=== PATIENT | female | born 1940 | race Caucasian/White ===

== ENCOUNTER 2017-10-31 17:57 | Inpatient (IN) | payer MEDICARE, BC ==
--- NOTE | 2017-10-31 18:49 | XR ---
EXAMINATION TYPE: XR chest 2V DATE OF EXAM: 10/31/2017 COMPARISON: NONE HISTORY: Near syncope TECHNIQUE: Frontal and lateral views of the chest are obtained. FINDINGS: Patient is post median sternotomy and rotated. Size may be accentuated by rotation. Inters titium appears increased. No evident pneumothorax or pleural effusion. Bandlike area of increased att enuation present at the left lung base. IMPRESSION: There may be a component of pulmonary venous hypertension and interstitial edema. Expira tory rotated exam. Basilar atelectasis or scar. Follow-up as indicated.
[2017-10-31] MEDS ORDERED: NOREPINEPHRIN 4 MG-0.9% NS PMX 4 MG/250 ML ML IV ONE (19:46)
[2017-10-31] MEDS ORDERED: SODIUM CHLORIDE 0.9% 1,000 ML IV ONE (19:53)
--- NOTE | 2017-10-31 20:07 | ED ---
General Adult HPI - General Chief complaint: Recheck/Abnormal Lab/Rx Stated complaint: low blood pressure Time Seen by Provider: 10/31/17 18:07 Source: patient, EMS Mode of arrival: EMS Limitations: no limitations - History of Present Illness Initial comments: 27 years old female with a history of chest pain shortness of breath abdominal pain with a history of coronary artery disease CABG, hyperlipidemia and diabetes hypertension as well as COPD she was recently admitted with a pneumonia , she passed out today she ended up in the [facility] where they noticed her blood pressure was 55/20 she was given fluids and antibiotics blood pressure Arrival to our place was 79/420 I repeated the chest x-ray showed mild congestive heart failure repeated the troponin this time reportedly troponin was elevated. System is unremarkable at this point - Related Data Home Medications Medication Instructions Recorded Confirmed Albuterol Inhaler [Ventolin Hfa 1 - 2 puff INHALATION RT-QID PRN 10/31/17 Inhaler] Aspirin EC [Ecotrin Low Dose] 81 mg PO DAILY 10/31/17 10/31/17 Atorvastatin Calcium [Lipitor] 20 mg PO HS 10/31/17 10/31/17 Cefuroxime Axetil [Ceftin] 500 mg PO BID 10/31/17 10/31/17 Cholecalciferol (Vitamin D3) 2,000 unit PO DAILY 10/31/17 10/31/17 [Vitamin D3] Escitalopram [Lexapro] 15 mg PO DAILY 10/31/17 10/31/17 Famotidine [Pepcid] 20 mg PO DAILY 10/31/17 10/31/17 Insulin Aspart [Novolog Flexpen] See Protocol SQ AC-BID 10/31/17 10/31/17 Insulin Glargine,Hum.rec.anlog 43 unit SQ HS 10/31/17 10/31/17 [Basaglar Kwikpen U-100] Lisinopril [Prinivil] 5 mg PO DAILY 10/31/17 10/31/17 Metoprolol Tartrate [Lopressor] 50 mg PO BID 10/31/17 10/31/17 Nitroglycerin Sl Tabs [Nitrostat] 0.4 mg SUBLINGUAL Q5M PRN 10/31/17 10/31/17 Pregabalin [Lyrica] 150 mg PO BID 10/31/17 10/31/17 Allergies Allergy/AdvReac Type Severity Reaction Status Date / Time codeine Allergy Unknown Verified 10/31/17 18:40 Iodinated Contrast- Oral and Allergy Rash/Hives Verified 10/31/17 18:40 IV Dye Review of Systems ROS Statement: Those systems with pertinent positive or pertinent negative responses have been documented in the HPI. ROS Other: All systems not noted in ROS Statement are negative. Past Medical History Past Medical History: Coronary Artery Disease (CAD), Deep Vein Thrombosis (DVT) History of Any Multi-Drug Resistant Organisms: None Reported Past Surgical History: Cholecystectomy, Heart Catheterization With Stent Additional Past Surgical History / Comment(s): open heart, B axillae lympnh node removal 70's Past Psychological History: Depression Smoking Status: Never smoker Past Alcohol Use History: None Reported Past Drug Use History: None Reported General Exam - General Exam Comments Initial Comments: General: The patient is awake and alert, in no obvious distress, she looks pale and tired but GCS is 15 she wants to eat something Skin: Skin is warm and dry and no rashes or lesions are noted. Eye: Pupils are equal, round and reactive to light, extra-ocular movements are intact; there is normal conjunctiva bilaterally. Ears, nose, mouth and throat: There are moist mucous membranes and no oral lesions. Neck: The neck is supple, there is no tenderness Cardiovascular: There is a regular rate and rhythm. No murmur, rub or gallop is appreciated. Respiratory: To auscultation bilateral, it is some crackles at the bases Gastrointestinal: Soft, non-distended, non-tender abdomen without masses or organomegaly noted. There is no rebound or guarding present. Bowel sounds are unremarkable. Back: There is no tenderness to palpation in the midline. There is no obvious deformity. Musculoskeletal: Normal ROM, no tenderness, There is no pedal edema. There is no calf tenderness or swelling. No cords were appreciated. Neurological: CN II-XII intact, Cranial nerves III through XII are intact. There are no obvious motor or sensory deficits. Coordination appears grossly intact. Speech is normal. Psychiatric: Cooperative, appropriate mood & affect, normal judgment. Limitations: no limitations Course Vital Signs 10/31/17 10/31/17 10/31/17 18:11 19:09 19:40 Temperature 97.9 F 97.3 F L Pulse Rate 73 95 Respiratory 16 16 Rate Blood Pressure 81/48 84/47 Blood Pressure 84/42 [Right Arm Supine] O2 Sat by Pulse 99 98 Oximetry Medical Decision Making - Lab Data Lab Results 10/31/17 Range/Units 18:25 Troponin I 0.149 H* (0.000-0.034) ng/mL Critical Care Time Total Critical Care Time: 49 Critical Care Time: Blood pressure is 79/40, she got about a liter of fluids chest x-ray showed mild congestion at that point we started on a nor appy, spoke with the Dr. Allison we'll give another liter of fluids and now she will go to the ICU on pressors. Troponin is elevated we'll go ahead and heparinize her, earlier at [facility] she had a CBC done hemoglobin is 9.2 PTT was 48 creatinine is 2.4 and lactate is 1.[address] to rule out any hemorrhage. I spoke with the Dr. Allison he is okay with the thao appendectomy and ICU admission patient be admitted under Dr. Leggett service and she'll be put on a Zosyn considering sepsis and recent admission for high for pneumonia Disposition Clinical Impression: Sepsis, Hypotension, Elevated troponin Disposition: ADMITTED IP TO THIS HOSP Condition: Good Referrals: Mehrdad Chery MD [Primary Care Provider] - 1-2 days
[2017-10-31] MEDS ORDERED: NALOXONE 0.4 MG/ML 1 ML VIAL IV PRN (20:08)
[2017-10-31] MEDS ORDERED: NITROGLYCERIN SL TABS 0.4 MG TAB SUBLINGUAL PRN (20:14)
[2017-10-31] MEDS ORDERED: NOREPINEPHRIN 4 MG-0.9% NS PMX 4 MG/250 ML ML IV SCH (20:15)
[2017-10-31 20:52] LABS: Glucose,Whole Blood 125 mg/dL (75-99)
[2017-10-31 21:10] LABS: Glucose,Whole Blood 138 mg/dL (75-99)
[2017-10-31] MEDS: ATORVASTATIN 20 MG TAB PO SCH (22:25)
[2017-10-31] MEDS: INSULIN DETEMIR 100 UNIT/ML 10 ML VIAL SQ SCH (22:25)
[2017-10-31] MEDS: PREGABALIN 75 MG CAP PO SCH (22:26)
[2017-10-31 22:52] VITALS: BMI 40.2
[2017-11-01] MEDS: PIPERACILLIN-TAZOBACTAM 3.375 GM in DEXTROSE/WATER 1 50ML.BAG IVPB SCH ×3 (01:01→20:47)
[2017-11-01] MEDS: SODIUM CHLORIDE 0.9% 1,000 ML IV SCH ×3 (01:02→20:53)
[2017-11-01 03:12] LABS: Hemoglobin A1C 7.3 % (4.0-6.0)
[2017-11-01 04:29] LABS: Anisocytosis Slight; Basophils % (A) 0 %; Eosinophils # (A) 0.1 k/uL (0-0.7); Eosinophils % (A) 1 %; HCT 32.5 % (34.0-46.0); HGB 9.7 gm/dL (11.4-16.0); Hypochromasia Marked; Lymphocytes # (A) 0.5 k/uL (1.0-4.8); Lymphocytes % (A) 12 %; MCH 26.5 pg (25.0-35.0); MCHC 29.8 g/dL (31.0-37.0); MCV 88.7 fL (80.0-100.0); Mean Platelet Volume 11.1; Monocytes # (A) 0.2 k/uL (0-1.0); Monocytes % (A) 5 %; Neutrophils # (A) 3.5 k/uL (1.3-7.7); Neutrophils % (A) 80 %; RBC 3.67 m/uL (3.80-5.40); RDW 16.8 % (11.5-15.5); WBC 4.4 k/uL (3.8-10.6)
[2017-11-01 04:59] LABS: Albumin 2.7 g/dL (3.5-5.0); Calcium 7.5 mg/dL (8.4-10.2); Magnesium 1.2 mg/dL (1.6-2.3); Phosphorus 4.3 mg/dL (2.5-4.5); Potassium 4.3 mmol/L (3.5-5.1); Total Bilirubin 0.7 mg/dL (0.2-1.3); Total Protein 5.6 g/dL (6.3-8.2)
[2017-11-01 05:39] LABS: Platelet Count 53 k/uL (150-450)
[2017-11-01] MEDS ORDERED: Magnesium Replacement Protocol 1 EACH MISC MISCELLANE PRN (06:18)
--- NOTE | 2017-11-01 07:09 | XR ---
EXAMINATION TYPE: XR chest 1V DATE OF EXAM: 11/01/2017 COMPARISON: 10/31/2017 HISTORY: Chest pain TECHNIQUE: Single frontal view of the chest is obtained. FINDINGS: There is no focal air space opacity, pleural effusion, or pneumothorax seen. Left hemithor ax volume loss with left basilar linear platelike subsegmental atelectasis and left hemidiaphragm unc hanged elevation is seen. The previously seen pulmonary vascular congestion has resolved in the inter im. Post CABG changes are seen of the chest with cardiac size upper limits of normal. Osseous structu res are intact. IMPRESSION: 1. Persistent left basilar subsegmental atelectasis with unchanged left hemidiaphragm elevation and l eft hemithorax volume loss. 2. Resolved pulmonary vascular congestion.
[2017-11-01] MEDS: ALBUTEROL NEBULIZED 2.5 MG/3 ML INHALATION PRN ×2 (07:44→11:33)
[2017-11-01] MEDS: MAGNESIUM SULFATE-D5W PMX 1 GM in DEXTROSE/WATER 1 100ML.BAG IVPB SCH ×3 (07:48→10:16)
[2017-11-01] MEDS: ASPIRIN 81 MG PO SCH (08:25)
[2017-11-01] MEDS: FAMOTIDINE 20 MG TAB PO SCH (08:25)
[2017-11-01] MEDS: ESCITALOPRAM 5 MG TAB PO SCH (08:25)
[2017-11-01] MEDS: CHOLECALCIFEROL 1,000 UNIT TAB PO SCH (08:25)
[2017-11-01] MEDS: ACETAMINOPHEN TAB 325 MG TAB PO PRN (08:30)
[2017-11-01] MEDS: INSULIN ASPART 100 UNIT/ML 1 ML 10 ML VIAL SQ SCH ×4 (09:37→21:50)
[2017-11-01] MEDS: PREGABALIN 75 MG CAP PO SCH ×2 (10:36→20:56)
--- NOTE | 2017-11-01 11:18 | P.CNPUL ---
History of Present Illness Consult date: 11/01/17 Chief complaint: Hypotension, syncope History of present illness: A pleasant 77-year-old female patient, presented to [facility] yesterday after she had a episodes of syncope. The patient felt weak and she briefly passed out. She was found to be hypotensive and her blood pressure was as low as 57 systolic. She was taken initially to [facility] and following that the patient got transferred to [facility] for further evaluation and treatment. The patient is known to have coronary artery disease and she has undergone previous bypass surgery. She is known to have obesity, insulin-dependent diabetes mellitus, hypertension, hyperlipidemia , diabetic peripheral neuropathy, hypothyroidism, chronic back pain, degenerative arthritis of the back and the knees, and previous history of T12- L1 compression deformity of the spine in addition to history of depression and irritable bowel syndrome. Approximately 3-4 weeks ago the patient was at [facility] treated for pneumonia. The patient had a preliminary workup at [facility]. The patient was found to have no significant leukocytosis. The white cell count was nonelevated. Her initial creatinine was at 2.4. Urinalysis has not been done. Chest x-ray showed some mild pulmonary vascular congestion. There was no evidence of any pneumonia. EKG showed a right bundle branch block pattern. The patient was given IV fluids and following that she got transferred to our hospital and overall she received a total of 5 L of IV fluids. She was briefly placed on pressors to maintain her blood pressure and currently she is off the pressors for the past 6 hours. Repeat creatinine is near is down to 2. She is producing urine output although the urine is somewhat cloudy. No chest pain. Limited congested cough without any significant sputum production. A repeat chest x-ray was done today and shows a left basilar atelectasis. CAT scan of the brain that was done at [facility] showed mild cerebral atrophy and a 1.8 cm calcified right cerebral hemisphere meningioma. No altered mentation. No seizure activity. No focal neurological deficit. No worsening in the chronic swelling of the lower extremities. No hypoglycemic events as reported in history. Review of Systems Constitutional: Reports fever, Reports weakness, Reports weight gain Eyes: bilateral blurred vision, denies bulging eye, denies decreased vision Ears: deny: decreased hearing, ear discharge, earache Ears, nose, mouth and throat: Denies headache, Denies sore throat Cardiovascular: Reports decreased exercise tolerance, Reports leg edema, Reports syncope Respiratory: Reports dyspnea Genitourinary: Denies dysuria, Denies hematuria Musculoskeletal: Reports low back pain, Reports muscle weakness Musculoskeletal: bilateral: ankle swelling, absent: ankle pain, ankle stiffness Integumentary: Denies pruritus, Denies rash Neurological: Reports syncope, Reports weakness Psychiatric: Denies anxiety, Denies depression Endocrine: Denies fatigue, Denies weight change Past Medical History Past Medical History: Asthma, Coronary Artery Disease (CAD), Diabetes Mellitus, Deep Vein Thrombosis (DVT), Hypertension Additional Past Medical History / Comment(s): Bronchial asthma mild intermittent in nature, coronary artery disease, spinal stenosis, diabetes mellitus, diabetic retinopathy, diabetic peripheral neuropathy, hyperlipidemia, obesity with a BMI of 40.6, history of iron deficiency anemia, hypothyroidism, chronic back pain, degenerative arthritis, osteoarthritis, [employer] lesion probably a meningioma that is calcified measuring 1.6 cm in size on the right, compression deformity of the T12-L1, depression, irritable bowel syndrome, remote history of DVT currently on no anticoagulants,Macular Degeneration History of Any Multi-Drug Resistant Organisms: None Reported Past Surgical History: Cholecystectomy, Heart Catheterization With Stent Additional Past Surgical History / Comment(s): Coronary artery bypass surgery, axillary lymph node removal/biopsy, previous cardiac catheterization, cholecystectomy Date of Last Stent Placement:: 1988 Past Psychological History: Depression Smoking Status: Never smoker Past Alcohol Use History: None Reported Past Drug Use History: None Reported - Past Family History Mother Family Medical History: Myocardial Infarction ([place]) Medications and Allergies Home Medications Medication Instructions Recorded Confirmed Type Albuterol Inhaler [Ventolin Hfa 1 - 2 puff INHALATION RT-Q4H PRN 10/31/17 History Inhaler] Aspirin EC [Ecotrin Low Dose] 81 mg PO DAILY 10/31/17 11/01/17 History Atorvastatin Calcium [Lipitor] 20 mg PO HS 10/31/17 11/01/17 History Cefuroxime Axetil [Ceftin] 500 mg PO BID 10/31/17 11/01/17 History Cholecalciferol (Vitamin D3) 2,000 unit PO DAILY 10/31/17 10/31/17 History [Vitamin D3] Escitalopram [Lexapro] 15 mg PO DAILY 10/31/17 11/01/17 History Famotidine [Pepcid] 20 mg PO DAILY 10/31/17 11/01/17 History Insulin Aspart [Novolog Flexpen] See Protocol SQ AC-TID 10/31/17 11/01/17 History Insulin Glargine,Hum.rec.anlog 43 unit SQ HS 10/31/17 11/01/17 History [Basaglar Kwikpen U-100] Lisinopril [Prinivil] 5 mg PO DAILY 10/31/17 11/01/17 History Nitroglycerin Sl Tabs [Nitrostat] 0.4 mg SUBLINGUAL Q5M PRN 10/31/17 11/01/17 History Pregabalin [Lyrica] 150 mg PO BID 10/31/17 11/01/17 History Albuterol Nebulized [Ventolin 2.5 mg INHALATION Q4H PRN 11/01/17 11/01/17 History Nebulized] Albuterol Nebulized [Ventolin 2.5 mg INHALATION RT-QID 11/01/17 11/01/17 History Nebulized] Cholestyramine/Aspartame 4 gm PO BID 11/01/17 11/01/17 History [Cholestyramine Light Powder] Ferrous Sulfate [Feosol] 325 mg PO DAILY 11/01/17 11/01/17 History Insulin Aspart [NovoLOG 8 unit SQ AC-TID 11/01/17 11/01/17 History (formulary)] Isosorbide Mononitrate ER [Imdur] 60 mg PO DAILY 11/01/17 11/01/17 History Metoprolol Tartrate [Lopressor] 25 mg PO BID 11/01/17 11/01/17 History Allergies Allergy/AdvReac Type Severity Reaction Status Date / Time codeine Allergy Unknown Verified 10/31/17 18:40 Iodinated Contrast- Oral and Allergy Rash/Hives Verified 10/31/17 18:40 IV Dye Physical Exam Vitals: Vital Signs Temp Pulse Resp BP BP Pulse Ox 11/01/17 10:00 98 20 109/51 98 11/01/17 09:00 97 22 118/50 98 11/01/17 08:02 91 11/01/17 08:00 101.0 F H 98 25 H 118/58 97 11/01/17 07:47 103 H 91 L 11/01/17 07:00 105 H 19 137/67 92 L 11/01/17 06:30 117 H 54 H 96 11/01/17 06:15 99 25 H 129/73 97 11/01/17 06:00 101 H 24 98 11/01/17 05:45 96 27 H 114/56 94 L 11/01/17 05:30 97 22 98 11/01/17 05:15 94 22 140/99 92 L 11/01/17 05:00 91 23 120/100 96 11/01/17 04:45 85 20 104/61 94 L 11/01/17 04:30 81 20 104/52 92 L 11/01/17 04:15 77 18 108/56 95 11/01/17 04:00 78 22 102/80 100 11/01/17 03:45 79 18 114/56 98 11/01/17 03:30 75 15 116/52 100 11/01/17 03:15 72 17 106/62 97 11/01/17 03:00 82 20 109/49 81 L 11/01/17 02:45 68 18 115/74 100 11/01/17 02:30 64 11 L 93/47 100 11/01/17 02:15 64 15 96/52 100 11/01/17 02:00 66 15 93/44 100 11/01/17 01:45 65 15 102/50 100 11/01/17 01:30 63 15 102/47 11/01/17 01:15 64 15 98/46 100 11/01/17 01:11 100 11/01/17 01:00 63 15 98/46 99 11/01/17 00:45 65 13 98/48 100 11/01/17 00:30 62 14 98/48 100 11/01/17 00:15 62 15 100/47 100 11/01/17 00:00 97.8 F 66 16 100/47 99 10/31/17 23:45 66 15 100/59 100 10/31/17 23:30 67 15 103/49 99 10/31/17 23:15 66 15 103/49 99 10/31/17 23:00 68 13 102/51 98 10/31/17 22:45 67 18 118/55 10/31/17 22:31 68 19 118/55 99 10/31/17 22:30 72 18 104/53 99 10/31/17 22:15 65 14 104/53 99 10/31/17 22:00 65 18 112/59 98 10/31/17 21:45 66 17 112/52 99 10/31/17 21:30 67 20 106/56 99 10/31/17 21:15 97.9 F 67 20 106/56 10/31/17 21:05 72 32 H 10/31/17 20:30 97.1 F L 69 20 111/53 99 10/31/17 20:08 78 18 97/51 100 10/31/17 19:40 84/42 10/31/17 19:09 97.3 F L 95 16 84/47 98 10/31/17 18:11 97.9 F 73 16 81/48 99 Intake and Output 10/31/17 11/01/17 11/01/17 22:59 06:59 14:59 Intake Total 800 600 Output Total 190 190 Balance 610 410 Intake: IV 800 600 Magnesium Sulfate-D5w Pmx 300 1 gm In Dextrose/Water 1 100ml.bag @ 100 mls/hr IVPB Q1H KARLA Rx#: [id number] Sodium Chloride 0.9% 1, 800 300 000 ml @ 100 mls/hr IV . Q10H KARLA Rx#:[id number] Output: Urine 190 190 Other: Voiding Method Indwelling Catheter Indwelling Catheter Indwelling Catheter Weight 103 kg 104 kg Obese, comfortable likely distress.Head exam was generally normal. There was no scleral icterus or corneal arcus. Mucous membranes were moist. Neck is short and supple and there is crowding of posterior pharyngeal a Mallampati class IV. Lung sounds are diminished bilaterally in addition some crackles in the lung bases.Cardiac exam revealed the PMI to be normally situated and sized. The rhythm was regular and no extrasystoles were noted during several minutes of auscultation. The first and second heart sounds were normal and physiologic splitting of the second heart sound was noted. There were no murmurs, rubs, clicks, or gallops.Abdominal exam revealed normal bowel sounds. The abdomen was soft, non-tender, and without masses, organomegaly, or appreciable enlargement of the abdominal aorta. Patient is obese and the organs cannot be accurately palpated. Extremities are showing +1 pitting edema distal cyanosis or clubbing. Neurologically, the patient is awake and alert and is no focal logical deficits that this point. Cranial nerves are intact.Examination of the skin revealed no evidence of significant rashes, suspicious appearing nevi or other concerning lesions. Results - Laboratory Findings CBC and BMP: 11/01/17 04:01 11/01/17 04:01 Abnormal lab findings: Abnormal Labs 10/31/17 10/31/17 10/31/17 18:25 18:27 20:50 RBC Hgb Hct MCHC RDW Plt Count Lymphocytes # BUN Creatinine POC Glucose (mg/dL) 125 H Hemoglobin A1c 7.3 H Calcium Magnesium AST ALT Alkaline Phosphatase Troponin I 0.149 H* Total Protein Albumin 10/31/17 11/01/17 11/01/17 21:07 04:01 04:01 RBC 3.67 L Hgb 9.7 L Hct 32.5 L MCHC 29.8 L RDW 16.8 H Plt Count 53 L Lymphocytes # 0.5 L BUN 38 H Creatinine 2.00 H POC Glucose (mg/dL) 138 H Hemoglobin A1c Calcium 7.5 L Magnesium 1.2 L AST 121 H ALT 69 H Alkaline Phosphatase 240 H Troponin I Total Protein 5.6 L Albumin 2.7 L - Diagnostic Findings Chest x-ray: image reviewed Assessment and Plan Plan: Assessment 1 syncope, likely secondary to hypotension. 2 acute hypotension, currently under investigation. The patient was volume responsive and the patient required pressors briefly. Rule out sepsis with secondary hypotension especially the patient had fever at a time of admission.. This may be hypovolemic/septic shock. Underlying cardiogenic shock is felt to be less likely 3 acute kidney injury, improving with fluid resuscitation 4 coronary artery disease with previous bypass surgery 5 right bundle branch block pattern on the EKG 6 insulin-dependent diabetes mellitus 7 diabetic peripheral neuropathy and retinopathy 8 obesity with a BMI of 40.6 9 hypothyroidism 10 hypertension 11 hyperlipidemia 12 recent hospitalization for pneumonia at [facility] 13 chronic back pain/degenerative arthritis/osteoarthritis/lumbosacral generative disc disease along with spinal stenosis/compression deformity of the left T12-L1 spine 14 irritable bowel syndrome 15 anemia 16 abnormal LFT 17 troponin leak 18 meningioma Plan Check urinalysis. Check urine culture. Check blood culture. IV Zosyn as empiric antibiotic coverage. Monitor fever pattern. Obtain US of the GB and kidney and the carotids. Monitor cardiac enzymes every 8 hours 2 more samples. Monitor the blood pressure and use pressors if needed. Currently she is on 80 mL an hour of normal saline. Obtain records from records from [facility] , we'll continue to follow
[2017-11-01 12:10] LABS: Glucose,Whole Blood 67 mg/dL (75-99)
--- NOTE | 2017-11-01 12:15 | CONS ---
CONSULTATION This is a 77-year-old female who presented to the [facility] with an episode of syncope. She was hypertensive and persistently so in the 70s. Cardiology was consulted on account of an abnormal troponin of 0.1. When I examined her, she was not complaining of any chest discomfort. No dizziness, lightheadedness, palpitations, or shortness of breath. She looked very comfortable and her blood pressure is in the normal range. Past medical history of obesity, insulin dependant diabetes, hypertension, dyslipidemia, diabetic neuropathy and recently treated at [facility] for pneumonitis. She was treated with IV fluids and pressors and was transferred to the hospital. She received about 5 L of fluids. REVIEW OF SYSTEMS: She does report fever, weakness and weight gain and blurring of vision. No hematuria, dysuria. No strokes or seizures. No nausea, vomiting, diarrhea, hematuria, dysuria. PAST HISTORY: Of asthma, coronary artery disease, insulin-dependent diabetes, DVT, hypertension. PAST SURGICAL HISTORY: Cholecystectomy, cardiac catheterization with stenting and coronary artery bypass grafting, cholecystectomy. SOCIAL HISTORY: She is a nonsmoker. MEDICATION LIST: Was reviewed and is documented in the chart. She is on aspirin, atorvastatin, insulin, lisinopril, Imdur, metoprolol. ALLERGIES: IODINE. PHYSICAL EXAMINATION: At this time, vitals are stable. Blood pressure is 118/50 mmHg, respirations are normal. Pulse rate is in the 80s and 90s. Head and neck examination normal. Heart sounds are normal. Lungs are clear to auscultation. Extremities are warm, no edema. Abdomen is soft, nontender. IMPRESSION: Patient presented with persistent hypotension, mildly abnormal troponins without any chest discomfort or angina-like symptoms. Her 12-lead ECG shows right bundle branch block pattern. Suggest from a cardiac standpoint, should continue cardiac medications and workup for the cause of hypotension and a 2D echo and Doppler study. MMODL / IJN: [id number] /
--- NOTE | 2017-11-01 13:51 | US ---
EXAMINATION TYPE: US carotid duplex BILAT DATE OF EXAM: 11/01/2017 COMPARISON: NONE CLINICAL HISTORY: Syncope. EXAM MEASUREMENTS: RIGHT: Peak Systolic Velocity (PSV) cm/sec ----- Right CCA: 71.6 ----- Right ICA: 96.1 ----- Right ECA: 97.4 ICA/CCA ratio: 1.3 RIGHT: End Diastole cm/sec ----- Right CCA: 11.6 ----- Right ICA: 14.1 ----- Right ECA: 0.0 LEFT: Peak Systolic Velocity (PSV) cm/sec ----- Left CCA: 52.4 ----- Left ICA: 88.2 ----- Left ECA: 82.4 ICA/CCA ratio: 1.7 LEFT: End Diastole cm/sec ----- Left CCA: 12.5 ----- Left ICA: 23.8 ----- Left ECA: 0.0 VERTEBRALS (direction of flow): Right Vertebral: Antegrade Left Vertebral: Antegrade Rhythm: Arrhythmia Technically difficult study, ICU patient unable to cooperate and snoring heavily throughout test. No significant velocity elevations. Minimal amount of grayscale plaquing within the right carotid bulb. IMPRESSION: 1. Minimal grayscale atheromatous plaquing within the right carotid bulb with no hemodynamically sign ificant stenosis within either carotid arterial system as visualized. 2. Incidental note of a cardiac arrhythmia. Correlate with EKG.
[2017-11-01 14:06] LABS: Glucose,Whole Blood 86 mg/dL (75-99)
--- NOTE | 2017-11-01 15:02 | US ---
EXAMINATION TYPE: US abd limited kidneys/bladder DATE OF EXAM: 11/01/2017 COMPARISON: NONE CLINICAL HISTORY: Elevated LFTs. EXAM MEASUREMENTS: Liver Length: 17.7 cm Gallbladder Wall: Surgically absent CBD: 0.4 cm Right Kidney: 13.3 x 5.6 x 4.6 cm Left Kidney: unable to obtain measurement Morbidly obese ICU patient unable to hold her breath or move in any way to assist examiner. Technical ly difficult and limited study Pancreas: appears prominent, partially obscured by bowel gas Liver: limited visualization, increased attenuation most commonly associated with hepatic steatosis a finding limits evaluation for underlying masses, upper limits of normal in size Gallbladder: Surgically absent CBD: wnl Right Kidney: portion of superior kidney obscured by overlying bowel gas, measures large Left Kidney: upper and mid pole obscured by bowel gas, unable to view well due to above limitations Bladder: not seen, [place] IMPRESSION: 1. Exam is limited by overlying bowel gas with obscuration of portions of the left kidney, right kidn ey, pancreas, and liver. 2. Findings most compatible with hepatic steatosis. 3. Surgical absence of the gallbladder with no dilatation of the common bile duct.
--- NOTE | 2017-11-01 15:45 | CONS ---
CONSULTATION REASON FOR CONSULT: Renal failure. HISTORY OF PRESENT ILLNESS: The patient is a 77-year-old female who was transferred from [facility]. Patient states she was at home and she apparently passed out. Her family called EMS. She was hypotensive and was on Levophed and transferred from [facility] to [facility]. Patient has received 3 L of IV fluids since admission. She was on Levophed, which is now discontinued. Serum creatinine was about 2.5 mg/dL, currently down to 2.0. Patient has had good urine output. She denies use of any nonsteroidal anti- inflammatory agents. She was at [facility] on 10/15/2017. At that time, she had influenza and received a course of Tamiflu. We had seen her in August at [facility] for acute kidney injury, at which time serum creatinine was as high as 2.0 mg/dL. Patient has not received any IV contrast. Her UA is suggestive of possible underlying UTI. PAST MEDICAL HISTORY: Asthma, coronary artery disease, type 2 diabetes, history of DVT, hypertension, recent admission for influenza about 2 weeks ago, a ROOM SERVICE WAITER lesion, possibly meningioma, history of macular degeneration, irritable bowel syndrome, osteoarthritis, hypothyroidism, iron deficiency anemia, hyperlipidemia, peripheral neuropathy, spinal stenosis. PAST SURGICAL HISTORY: Cholecystectomy, cardiac catheterization, coronary artery bypass surgery. Axillary lymph node biopsy. SOCIAL HISTORY: Negative for smoking, drug abuse or alcohol abuse. MEDICATIONS: At home included aspirin, Lipitor, Ventolin, Ceftin, vitamin D, Lexapro, Pepcid, insulin, Prinivil, Nitrostat, Lyrica, iron, Imdur, Lopressor. ALLERGIES: IV DYE. PHYSICAL EXAMINATION: Patient is currently comfortable, awake. She is not in any acute distress. Blood pressure is 99/52, heart rate 84 per minute. She is afebrile. Examination of the heart, S1, S2. Examination of the lungs,. decreased breath sounds at the bases. Bilateral basal crackles are heard. Abdomen is soft, nontender. Examination of the lower extremities shows no significant edema. ROOM SERVICE WAITER exam is grossly intact. Patient is moving all 4 extremities. LABS: Revealed sodium 139, potassium 4.3, chloride 102, BUN 38, serum creatinine 2.0, hemoglobin 9.7 g/dL, phosphorus 4.3, magnesium 1.2. ASSESSMENT: 1. Acute kidney injury secondary to hypotension, hypoperfusion and most likely sepsis as well. Currently improving. Continue with IV fluids. Monitor closely for volume overload. 2. Hypotension, most likely from underlying sepsis. Follow up on all the cultures. Patient is maintained on empiric antibiotics. 3. Recent history of influenza, status post Tamiflu. 4. Chronic kidney disease. Previous creatinine 1.2 in earlier part of September of 2017. 5. Hypomagnesemia, currently being replaced. PLAN: Follow up on cultures. Continue fluids at the current rate and closely monitor for fluid overload. Repeat labs in a.m. Thank you for this consultation. Will continue to follow the patient with you during her hospitalization. MMODL / IJN: [id number] /
[2017-11-01 16:48] LABS: Glucose,Whole Blood 102 mg/dL (75-99)
--- NOTE | 2017-11-01 17:00 | CONS ---
CONSULTATION DATE OF SERVICE: 11/01/2017. REASON FOR CONSULTATION: Fever/sepsis. HISTORY OF PRESENT ILLNESS: The patient is a 77-year-old female, who was initially taken to the [facility] after apparently the patient did have a syncopal episode. The patient said she felt weak and briefly passed out. At the [facility] ER the patient noticed to be hypotensive with systolic down to 57 with no ICU bed available at that facility. The patient has been transferred to the [facility] ER for further evaluation of the same. On arrival to the ER at this facility the patient has been 98 systolic. She was slightly tachycardic 121 to 117. She did have a fever of 101 degrees Fahrenheit this morning. The patient did have a white count normal at 4.4. Her liver enzymes slightly elevated with AST of 0.7, ALT of 121. The patient did not have any UA or culture. She did have a chest x-ray which shows a component of pulmonary venous hypertension, interstitial edema. Repeat x-rays did show persistent left basilar subsegmental atelectasis with no pulmonary vascular congestion. When asked specifically the patient did have some congested cough for the last few days. However, the patient bring up any sputum. The patient denies any chest pain. Denies any significant URI symptoms. The patient denies any abdominal pain. No nausea, vomiting. No diarrhea. No significant urinary symptoms. She has been started on Zosyn and an infectious disease was consulted for further recommendation regarding antibiotic therapy. REVIEW OF SYSTEMS: CONSTITUTIONAL: Positive for weakness along with the fever on admission. EYES: No complaint. ENT: No complaint. RESPIRATORY: As per HPI. CARDIOVASCULAR: No complaint. GENITOURINARY: No complaint. GASTROINTESTINAL: No complaint. MUSCULOSKELETAL: No complaint. INTEGUMENTARY: No complaint. PSYCHOLOGIC: No complaint. ENDOCRINE: No complaint. NEUROLOGIC: No complaint. PAST MEDICAL HISTORY: Diabetes mellitus, coronary artery disease, asthma, DVT, hypertension, macular degeneration. PAST SURGICAL HISTORY: Cholecystectomy, heart catheterization with stent, coronary artery bypass grafting, lymph node removal, cholecystectomy. SOCIAL HISTORY: No history of smoking, drinking or drug use. FAMILY HISTORY: Mother with history of [place]. ALLERGIES: To CODEINE AND IODINATED CONTRAST DYE. MEDICATION: Medications include the patient currently on Tylenol, Ventolin, aspirin, Lipitor, vitamin D3, Lovenox, Lexapro, Pepcid, NovoLog, Levemir, Narcan, Nitrostat, Pip- tazobactam, Lyrica and IV fluid. EXAMINATION: Her blood pressure is 102/47 with a pulse of 83, temperature of 98.8, T-max is 101 degrees Fahrenheit. She is 97% on 2 L nasal cannula. General description is an elderly female lying in bed in no distress. No tachypnea or accessory muscle of respiration use. HEENT: Shows pallor. No scleral icterus. Oral mucosa membranes dry. No erythema or thrush. NECK: Trachea central. No thyromegaly. LUNGS: Unlabored breathing, decreased breath sounds at the bases. No wheeze or crackle. HEART: S1, S2. Regular rate and rhythm. ABDOMEN: Soft, no tenderness. No organomegaly. No guarding or rigidity. EXTREMITIES: No edema of the feet. SKIN: No rash or mass palpable. NEUROLOGICAL: Patient is awake, alert, oriented x3. No signs of meningeal irritation. LABS: Hemoglobin 9.7, white count 4.4, BUN of 30, creatinine 2.0. Electrolytes have been normal. AST was 121, ALT 69. No UA has been done. Chest x-ray report as mentioned above. Blood culture obtained currently pending. DIAGNOSTIC IMPRESSION AND PLAN: Patient with sepsis in a patient who did have a fever of 101 degrees Fahrenheit. She was significantly hypertensive regarding multiple fluid boluses with tachycardia meeting criteria for SIRS/sepsis in a patient who did have a slightly elevated liver enzymes. Also have mildly congested cough with a source questionable abdominal or pneumonia not entirely excluded. The patient with no evidence of any cellulitis, though denies having significant urinary symptoms. UA has not been checked to make sure that is not the source of infection. PLAN: 1. We will check a UA and culture. 2. Check a influenza PCR. 3. Await the ultrasound abdomen is to be completed. 4. Zosyn 3.375 mg q.8h to provide adequate coverage for both pneumonia as well as abdomen source. 5. We will follow up on the clinical condition and culture to further adjust medication if needed. Thank you for this consultation. Will follow this patient along with you. MMODL / IJN: [id number] /
[2017-11-01 18:36] LABS: Amorphous Sediment,Urine Rare /hpf; Appearance,Urine Turbid (Clear); Bilirubin,Urine Negative (Negative); Blood,Urine Moderate (Negative); Color,Urine Yellow; Glucose,Urine (UA) Negative (Negative); Ketones,Urine Negative (Negative); Leukocyte Esterase,Urine Large (Negative); Mucus,Urine Rare /hpf; Nitrite,Urine Negative (Negative); PH, Urine 5.5 (5.0-8.0); Protein,Urine 1+ (Negative); RBC,Urine 14 /hpf (0-5); Specific Gravity,Urine 1.013 (1.001-1.035); Squamous Epithelial Cell,Urine 1 /hpf (0-4); Urobilinogen,Urine <2.0 mg/dL (<2.0); WBC,Urine 98 /hpf (0-5)
[2017-11-01] MEDS: ATORVASTATIN 20 MG TAB PO SCH (20:48)
[2017-11-01 21:44] LABS: Glucose,Whole Blood 124 mg/dL (75-99)
[2017-11-01] MEDS: INSULIN DETEMIR 100 UNIT/ML 10 ML VIAL SQ SCH (21:52)
--- NOTE | 2017-11-01 22:21 | P.HPIM ---
History of Present Illness H&P Date: 11/01/17 Chief Complaint: Syncope Patient is a 77-year-old female with a known history of coronary artery disease and coronary artery bypass graft, diabetes2 and diabetic retinopathy and peripheral neuropathy, hyperlipidemia and obesity and multiple other medical problems was initially presented to [facility] status post syncopal episode. Patient was apparently at physician's office and was waiting for her ride and suddenly she had a syncopal episode. Last about 20 seconds. Patient landed on the ground and EMS was called and patient was initially taken to [facility]. Patient was found have hypotensive with SBP 57 and was patient immediately transferred to [facility]. Approximately 3-4 weeks ago the patient was at [facility] treated for pneumonia. Chest x-ray showed mild pulmonary vascular condition. Creatinine 2.4 initially EKG right bundle branch block pattern Patient was started on pressor support.. CT head showed mild cerebral atrophy and a 1.8 cm calcified right cerebral hemisphere meningioma. Currently patient is communicating well. No denied any chest pain or shortness of breath. No seizure activity was noted. No altered mentation. No fever no chills. No nausea vomiting or diarrhea. No hyperglycemia. Review of Systems Constitutional: Patient denies any fever or chills . No generalized weakness or weight loss. Abdomen: Patient denied nausea vomiting and diarrhea and abdominal pain. Cardiovascular: Patient denies any chest pain or short of breath no palpitations. Respiratory: patient denied any cough is from production. No shortness of breath Neurologic: Patient denied any numbness or tingling headache. Musculoskeletal: Patient denies any complaints of joint swelling or deformity. Skin: Negative Psychiatric: Negative Endocrine: No heat or cold intolerance. No recent weight gain. Genitourinary: No dysuria or hematuria. 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 that is calcified measuring 1.6 cm in size on the right, compression deformity of the T12-L1, depression, irritable bowel syndrome, remote history of DVT currently on no anticoagulants,Macular Degeneration History of Any Multi-Drug Resistant Organisms: None Reported Past Surgical History: Cholecystectomy, Heart Catheterization With Stent Additional Past Surgical History / Comment(s): Coronary artery bypass surgery, axillary lymph node removal/biopsy, previous cardiac catheterization, cholecystectomy Date of Last Stent Placement:: 1988 Past Psychological History: Depression Smoking Status: Never smoker Past Alcohol Use History: None Reported Past Drug Use History: None Reported - Past Family History Mother Family Medical History: Myocardial Infarction ([place]) Medications and Allergies Home Medications Medication Instructions Recorded Confirmed Type Albuterol Inhaler [Ventolin Hfa 1 - 2 puff INHALATION RT-Q4H PRN 10/31/17 History Inhaler] Aspirin EC [Ecotrin Low Dose] 81 mg PO DAILY 10/31/17 11/01/17 History Atorvastatin Calcium [Lipitor] 20 mg PO HS 10/31/17 11/01/17 History Cefuroxime Axetil [Ceftin] 500 mg PO BID 10/31/17 11/01/17 History Cholecalciferol (Vitamin D3) 2,000 unit PO DAILY 10/31/17 10/31/17 History [Vitamin D3] Escitalopram [Lexapro] 15 mg PO DAILY 10/31/17 11/01/17 History Famotidine [Pepcid] 20 mg PO DAILY 10/31/17 11/01/17 History Insulin Aspart [Novolog Flexpen] See Protocol SQ AC-TID 10/31/17 11/01/17 History Insulin Glargine,Hum.rec.anlog 43 unit SQ HS 10/31/17 11/01/17 History [Basaglar Kwikpen U-100] Lisinopril [Prinivil] 5 mg PO DAILY 10/31/17 11/01/17 History Nitroglycerin Sl Tabs [Nitrostat] 0.4 mg SUBLINGUAL Q5M PRN 10/31/17 11/01/17 History Pregabalin [Lyrica] 150 mg PO BID 10/31/17 11/01/17 History Albuterol Nebulized [Ventolin 2.5 mg INHALATION Q4H PRN 11/01/17 11/01/17 History Nebulized] Albuterol Nebulized [Ventolin 2.5 mg INHALATION RT-QID 11/01/17 11/01/17 History Nebulized] Cholestyramine/Aspartame 4 gm PO BID 11/01/17 11/01/17 History [Cholestyramine Light Powder] Ferrous Sulfate [Feosol] 325 mg PO DAILY 11/01/17 11/01/17 History Insulin Aspart [NovoLOG 8 unit SQ AC-TID 11/01/17 11/01/17 History (formulary)] Isosorbide Mononitrate ER [Imdur] 60 mg PO DAILY 11/01/17 11/01/17 History Metoprolol Tartrate [Lopressor] 25 mg PO BID 11/01/17 11/01/17 History Allergies Allergy/AdvReac Type Severity Reaction Status Date / Time codeine Allergy Unknown Verified 10/31/17 18:40 Iodinated Contrast- Oral and Allergy Rash/Hives Verified 10/31/17 18:40 IV Dye Physical Exam Vitals: Vital Signs Temp Pulse Pulse Resp BP BP Pulse Ox 11/01/17 16:00 98.4 F 80 18 119/54 98 11/01/17 14:00 83 18 102/47 97 11/01/17 13:00 93 20 100/48 98 11/01/17 12:00 98.8 F 82 17 92/44 97 11/01/17 11:44 99 11/01/17 11:35 97 11/01/17 11:00 84 18 99/52 96 11/01/17 10:00 98 20 109/51 98 11/01/17 09:00 97 22 118/50 98 11/01/17 08:02 91 11/01/17 08:00 101.0 F H 98 25 H 118/58 97 11/01/17 07:47 103 H 91 L 11/01/17 07:00 105 H 19 137/67 92 L 11/01/17 06:30 117 H 54 H 96 11/01/17 06:15 99 25 H 129/73 97 11/01/17 06:00 101 H 24 98 11/01/17 05:45 96 27 H 114/56 94 L 11/01/17 05:30 97 22 98 11/01/17 05:15 94 22 140/99 92 L 11/01/17 05:00 91 23 120/100 96 11/01/17 04:45 85 20 104/61 94 L 11/01/17 04:30 81 20 104/52 92 L 11/01/17 04:15 77 18 108/56 95 11/01/17 04:00 78 22 102/80 100 11/01/17 03:45 79 18 114/56 98 11/01/17 03:30 75 15 116/52 100 11/01/17 03:15 72 17 106/62 97 11/01/17 03:00 82 20 109/49 81 L 11/01/17 02:45 68 18 115/74 100 11/01/17 02:30 64 11 L 93/47 100 11/01/17 02:15 64 15 96/52 100 11/01/17 02:00 66 15 93/44 100 11/01/17 01:45 65 15 102/50 100 11/01/17 01:30 63 15 102/47 11/01/17 01:15 64 15 98/46 100 11/01/17 01:11 100 11/01/17 01:00 63 15 98/46 99 11/01/17 00:45 65 13 98/48 100 11/01/17 00:30 62 14 98/48 100 11/01/17 00:15 62 15 100/47 100 11/01/17 00:00 97.8 F 66 16 100/47 99 10/31/17 23:45 66 15 100/59 100 10/31/17 23:30 67 15 103/49 99 10/31/17 23:15 66 15 103/49 99 10/31/17 23:00 68 13 102/51 98 10/31/17 22:45 67 18 118/55 10/31/17 22:31 68 19 118/55 99 10/31/17 22:30 72 18 104/53 99 10/31/17 22:15 65 14 104/53 99 10/31/17 22:00 65 18 112/59 98 Intake and Output 11/01/17 11/01/17 11/01/17 06:59 14:59 22:59 Intake Total 800 1940 540 Output Total 190 380 Balance 610 1560 540 Intake: IV 800 900 300 Magnesium Sulfate-D5w Pmx 300 1 gm In Dextrose/Water 1 100ml.bag @ 100 mls/hr IVPB Q1H [facility] Rx#: [id number] Sodium Chloride 0.9% 1, 800 600 300 000 ml @ 100 mls/hr IV . Q10H [facility] Rx#:[id number] Oral 1040 240 Output: Urine 190 380 Other: Voiding Method Indwelling Catheter Indwelling Catheter Indwelling Catheter Weight 104 kg PHYSICAL EXAMINATION: Patient is lying in the bed comfortably, no acute distress, awake alert and oriented.. HEENT: Normocephalic. Neck is supple. Pupils reactive. Nostrils clear. Oral cavity is moist. Ears reveal no drainage. Neck reveals no JVD, carotid bruits, or thyromegaly. CHEST EXAMINATION: Trachea is central. Symmetrical expansion. Lung martinez clear to auscultation and percussion. CARDIAC: Normal S1, S2 with no gallops. No murmurs ABDOMEN: Soft. Bowel sounds normal. No organomegaly. No abdominal bruits. Extremities: reveal no edema. No clubbing or cyanosis Neurologically awake, alert, oriented x3 with well-coordinated movements. No focal deficits noted Skin: No rash or skin lesions. Psychiatric: Cooperative. Nonsuicidal Musculoskeletal: No joint swelling or deformity. Normal range of motion. Results CBC & Chem 7: 11/01/17 04:01 11/01/17 04:01 Labs: Abnormal Lab Results - Last 24 Hours (Table) 10/31/17 11/01/17 11/01/17 Range/Units 18:27 04:01 04:01 RBC 3.67 L (3.80-5.40) m/uL Hgb 9.7 L (11.4-16.0) gm/dL Hct 32.5 L (34.0-46.0) % MCHC 29.8 L (31.0-37.0) g/dL RDW 16.8 H (11.5-15.5) % Plt Count 53 L (150-450) k/uL Lymphocytes # 0.5 L (1.0-4.8) k/uL BUN 38 H (7-17) mg/dL Creatinine 2.00 H (0.52-1.04) mg/dL POC Glucose (mg/dL) (75-99) mg/dL Hemoglobin A1c 7.3 H (4.0-6.0) % Calcium 7.5 L (8.4-10.2) mg/dL Magnesium 1.2 L (1.6-2.3) mg/dL AST 121 H (14-36) U/L ALT 69 H (9-52) U/L Alkaline Phosphatase 240 H (38-126) U/L Total Protein 5.6 L (6.3-8.2) g/dL Albumin 2.7 L (3.5-5.0) g/dL Urine Appearance (Clear) Urine Protein (Negative) Urine Blood (Negative) Ur Leukocyte Esterase (Negative) Urine RBC (0-5) /hpf Urine WBC (0-5) /hpf Amorphous Sediment (None) /hpf Urine Mucus (None) /hpf 11/01/17 11/01/17 11/01/17 Range/Units 12:09 16:36 18:01 RBC (3.80-5.40) m/uL Hgb (11.4-16.0) gm/dL Hct (34.0-46.0) % MCHC (31.0-37.0) g/dL RDW (11.5-15.5) % Plt Count (150-450) k/uL Lymphocytes # (1.0-4.8) k/uL BUN (7-17) mg/dL Creatinine (0.52-1.04) mg/dL POC Glucose (mg/dL) 67 L 102 H (75-99) mg/dL Hemoglobin A1c (4.0-6.0) % Calcium (8.4-10.2) mg/dL Magnesium (1.6-2.3) mg/dL AST (14-36) U/L ALT (9-52) U/L Alkaline Phosphatase (38-126) U/L Total Protein (6.3-8.2) g/dL Albumin (3.5-5.0) g/dL Urine Appearance Turbid H (Clear) Urine Protein 1+ H (Negative) Urine Blood Moderate H (Negative) Ur Leukocyte Esterase Large H (Negative) Urine RBC 14 H (0-5) /hpf Urine WBC 98 H (0-5) /hpf Amorphous Sediment Rare H (None) /hpf Urine Mucus Rare H (None) /hpf 11/01/17 Range/Units 21:32 RBC (3.80-5.40) m/uL Hgb (11.4-16.0) gm/dL Hct (34.0-46.0) % MCHC (31.0-37.0) g/dL RDW (11.5-15.5) % Plt Count (150-450) k/uL Lymphocytes # (1.0-4.8) k/uL BUN (7-17) mg/dL Creatinine (0.52-1.04) mg/dL POC Glucose (mg/dL) 124 H (75-99) mg/dL Hemoglobin A1c (4.0-6.0) % Calcium (8.4-10.2) mg/dL Magnesium (1.6-2.3) mg/dL AST (14-36) U/L ALT (9-52) U/L Alkaline Phosphatase (38-126) U/L Total Protein (6.3-8.2) g/dL Albumin (3.5-5.0) g/dL Urine Appearance (Clear) Urine Protein (Negative) Urine Blood (Negative) Ur Leukocyte Esterase (Negative) Urine RBC (0-5) /hpf Urine WBC (0-5) /hpf Amorphous Sediment (None) /hpf Urine Mucus (None) /hpf Microbiology - Last 24 Hours (Table) 11/01/17 08:30 Urine Culture - Preliminary Urine,Catheterized Thrombosis Risk Factor Assmnt - DVT/VTE Prophylaxis DVT/VTE Prophylaxis: Pharmacologic Prophylaxis ordered - Choose All That Apply Any of the Below Risk Factors Present?: Yes Each Factor Represents 1 point: Medical pt on bed rest, Obesity (BMI >25), Sepsis (< 1month) Each Risk Factor Represents 3 Points: Age 75 years or older Thrombosis Risk Factor Assessment Total Risk Factor Score: 6 Thrombosis Risk Factor Assessment Level: High Risk Assessment and Plan Assessment: Syncope likely due to hypertension Hypovolemic/septic shock. requiring pressor support and fluid boluses. Source of infection is not clear at this time. 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 Coronary artery bypass surgery Last Stent Placement:: 1988 hx of Depression Thrombocytopenia DVT prophylaxis with SCDs Plan: Patient will be continued on IV fluids and gradually taper down pressor support. Patient be continued on antibiotics in the form of Zosyn and follow- up culture reports. Current with home medications and hold blood pressure medications. Insulin dosing. Follow up closely. Further recommendations based on the clinical course. Prognosis guarded. Time with Patient: Greater than 30
[2017-11-02] MEDS: ACETAMINOPHEN TAB 325 MG TAB PO PRN ×2 (03:44→20:15)
[2017-11-02] MEDS: SODIUM CHLORIDE 0.9% 1,000 ML IV SCH ×2 (05:21→16:41)
[2017-11-02 06:08] LABS: Glucose,Whole Blood 37 mg/dL (75-99)
[2017-11-02 06:08] LABS: Glucose,Whole Blood 39 mg/dL (75-99)
[2017-11-02 06:21] LABS: Glucose,Whole Blood 48 mg/dL (75-99)
[2017-11-02] MEDS: INSULIN ASPART 100 UNIT/ML 1 ML 10 ML VIAL SQ SCH ×4 (06:25→21:35)
[2017-11-02 06:44] LABS: Glucose,Whole Blood 57 mg/dL (75-99)
[2017-11-02 07:03] LABS: Anisocytosis Slight; Basophils % (A) 0 %; Eosinophils % (A) 1 %; HCT 30.5 % (34.0-46.0); HGB 9.3 gm/dL (11.4-16.0); Hypochromasia Moderate; Lymphocytes # (A) 0.6 k/uL (1.0-4.8); Lymphocytes % (A) 19 %; MCH 26.6 pg (25.0-35.0); MCHC 30.5 g/dL (31.0-37.0); MCV 87.3 fL (80.0-100.0); Monocytes # (A) 0.2 k/uL (0-1.0); Monocytes % (A) 6 %; Neutrophils # (A) 2.1 k/uL (1.3-7.7); Neutrophils % (A) 68 %; RDW 16.5 % (11.5-15.5); WBC 3.1 k/uL (3.8-10.6)
[2017-11-02 07:04] LABS: Platelet Count 66 k/uL (150-450)
[2017-11-02 07:18] LABS: Calcium 7.8 mg/dL (8.4-10.2); Magnesium 1.9 mg/dL (1.6-2.3); Phosphorus 3.6 mg/dL (2.5-4.5)
[2017-11-02 07:22] LABS: Polychromasia Present
[2017-11-02 07:28] LABS: Glucose,Whole Blood 82 mg/dL (75-99)
[2017-11-02] MEDS: ALBUTEROL NEBULIZED 2.5 MG/3 ML INHALATION PRN (07:46)
[2017-11-02] MEDS: PIPERACILLIN-TAZOBACTAM 3.375 GM in DEXTROSE/WATER 1 50ML.BAG IVPB SCH ×2 (08:30→20:14)
[2017-11-02] MEDS: CHOLECALCIFEROL 1,000 UNIT TAB PO SCH (08:31)
[2017-11-02] MEDS: ESCITALOPRAM 5 MG TAB PO SCH (08:31)
[2017-11-02] MEDS: ASPIRIN 81 MG PO SCH (08:32)
[2017-11-02] MEDS: FAMOTIDINE 20 MG TAB PO SCH (08:32)
[2017-11-02] MEDS: PREGABALIN 75 MG CAP PO SCH ×2 (08:33→20:14)
[2017-11-02] MEDS ORDERED: ENOXAPARIN 30 MG/0.3 ML SYRINGE SQ SCH (09:00)
--- NOTE | 2017-11-02 10:09 | P.PN ---
Subjective Progress Note Date: 11/02/17 Principal diagnosis: Fevers and sepsis Seen and examined for the follow-up of acute kidney injury. She was at [facility]. Hypotensive started on the levophed and transferred to [facility]. Currently doing better off pressors. Denies any nausea vomiting diarrhea. Objective - Vital Signs Vital signs: Vital Signs Temp 95.4 F L 11/02/17 08:00 Pulse 70 11/02/17 08:03 Resp 18 11/02/17 08:00 BP 127/59 11/02/17 08:00 Pulse Ox 100 11/02/17 08:00 Intake & Output 11/01/17 11/02/17 11/02/17 18:59 06:59 18:59 Intake Total 2480 600 1400 Output Total 380 500 400 Balance 2100 100 1000 Weight 110.5 kg Intake: IV 0316 273 7321 Magnesium Sulfate-D5w Pmx 300 1 gm In Dextrose/Water 1 100ml.bag @ 100 mls/hr IVPB Q1H [facility] Rx#: [id number] Sodium Chloride 0.9% 1, 038 284 7630 000 ml @ 100 mls/hr IV . Q10H [facility] Rx#:[id number] Intake, IV Titration 50 Amount Piperacillin-Tazobactam 3 50 .375 gm In Dextrose/Water 1 50ml.bag @ 12.5 mls/hr IVPB Q12H [facility] Rx#: [id number] Oral 1280 150 Output: Urine 380 500 400 Uretheral (Cortez) 300 400 Other: Voiding Method Indwelling Catheter Indwelling Catheter Indwelling Catheter # Bowel Movements 2 - Exam Lying in bed no acute distress S1 and S2 heard Lungs clear Abdomen soft bowel sounds present Cortez catheter draining urine No edema - Labs CBC & Chem 7: 11/02/17 06:20 11/02/17 06:20 Labs: Abnormal Lab Results - Last 24 Hours (Table) 11/01/17 11/01/17 11/01/17 Range/Units 12:09 16:36 18:01 WBC (3.8-10.6) k/uL RBC (3.80-5.40) m/uL Hgb (11.4-16.0) gm/dL Hct (34.0-46.0) % MCHC (31.0-37.0) g/dL RDW (11.5-15.5) % Plt Count (150-450) k/uL Lymphocytes # (1.0-4.8) k/uL BUN (7-17) mg/dL Creatinine (0.52-1.04) mg/dL Glucose (74-99) mg/dL POC Glucose (mg/dL) 67 L 102 H (75-99) mg/dL Calcium (8.4-10.2) mg/dL Urine Appearance Turbid H (Clear) Urine Protein 1+ H (Negative) Urine Blood Moderate H (Negative) Ur Leukocyte Esterase Large H (Negative) Urine RBC 14 H (0-5) /hpf Urine WBC 98 H (0-5) /hpf Amorphous Sediment Rare H (None) /hpf Urine Mucus Rare H (None) /hpf 11/01/17 11/02/17 11/02/17 Range/Units 21:32 06:04 06:06 WBC (3.8-10.6) k/uL RBC (3.80-5.40) m/uL Hgb (11.4-16.0) gm/dL Hct (34.0-46.0) % MCHC (31.0-37.0) g/dL RDW (11.5-15.5) % Plt Count (150-450) k/uL Lymphocytes # (1.0-4.8) k/uL BUN (7-17) mg/dL Creatinine (0.52-1.04) mg/dL Glucose (74-99) mg/dL POC Glucose (mg/dL) 124 H 37 L 39 L (75-99) mg/dL Calcium (8.4-10.2) mg/dL Urine Appearance (Clear) Urine Protein (Negative) Urine Blood (Negative) Ur Leukocyte Esterase (Negative) Urine RBC (0-5) /hpf Urine WBC (0-5) /hpf Amorphous Sediment (None) /hpf Urine Mucus (None) /hpf 11/02/17 11/02/17 11/02/17 Range/Units 06:19 06:20 06:20 WBC 3.1 L (3.8-10.6) k/uL RBC 3.50 L (3.80-5.40) m/uL Hgb 9.3 L (11.4-16.0) gm/dL Hct 30.5 L (34.0-46.0) % MCHC 30.5 L (31.0-37.0) g/dL RDW 16.5 H (11.5-15.5) % Plt Count 66 L (150-450) k/uL Lymphocytes # 0.6 L (1.0-4.8) k/uL BUN 30 H (7-17) mg/dL Creatinine 1.63 H (0.52-1.04) mg/dL Glucose 49 L* (74-99) mg/dL POC Glucose (mg/dL) 48 L (75-99) mg/dL Calcium 7.8 L (8.4-10.2) mg/dL Urine Appearance (Clear) Urine Protein (Negative) Urine Blood (Negative) Ur Leukocyte Esterase (Negative) Urine RBC (0-5) /hpf Urine WBC (0-5) /hpf Amorphous Sediment (None) /hpf Urine Mucus (None) /hpf 11/02/17 Range/Units 06:42 WBC (3.8-10.6) k/uL RBC (3.80-5.40) m/uL Hgb (11.4-16.0) gm/dL Hct (34.0-46.0) % MCHC (31.0-37.0) g/dL RDW (11.5-15.5) % Plt Count (150-450) k/uL Lymphocytes # (1.0-4.8) k/uL BUN (7-17) mg/dL Creatinine (0.52-1.04) mg/dL Glucose (74-99) mg/dL POC Glucose (mg/dL) 57 L (75-99) mg/dL Calcium (8.4-10.2) mg/dL Urine Appearance (Clear) Urine Protein (Negative) Urine Blood (Negative) Ur Leukocyte Esterase (Negative) Urine RBC (0-5) /hpf Urine WBC (0-5) /hpf Amorphous Sediment (None) /hpf Urine Mucus (None) /hpf Microbiology - Last 24 Hours (Table) 11/01/17 18:01 Urine Culture - Preliminary Urine,Catheterized 11/01/17 08:30 Urine Culture - Preliminary Urine,Catheterized Assessment and Plan Assessment: Impression: #1 nonoliguric acute kidney injury secondary to ischemic ATN. #2 septic shock suspect influenza #3 CK D3 baseline creatinine 1.2 suspect nephrosclerosis Recommendations: #1 renal function improving monitor. Monitor off IV fluids. #2 DC Cortez catheter #3 avoid nephrotoxic agents and hypotensive episodes. #4 repeat labs in the morning
[2017-11-02 11:34] LABS: Glucose,Whole Blood 92 mg/dL (75-99)
--- NOTE | 2017-11-02 15:50 | P.PN ---
Subjective Progress Note Date: 11/02/17 A pleasant 77-year-old female patient, presented to [facility] yesterday after she had a episodes of syncope. The patient felt weak and she briefly passed out. She was found to be hypotensive and her blood pressure was as low as 57 systolic. She was taken initially to [facility] and following that the patient got transferred to [facility] for further evaluation and treatment. The patient is known to have coronary artery disease and she has undergone previous bypass surgery. She is known to have obesity, insulin-dependent diabetes mellitus, hypertension, hyperlipidemia , diabetic peripheral neuropathy, hypothyroidism, chronic back pain, degenerative arthritis of the back and the knees, and previous history of T12- L1 compression deformity of the spine in addition to history of depression and irritable bowel syndrome. Approximately 3-4 weeks ago the patient was at [facility] treated for pneumonia. The patient had a preliminary workup at [facility]. The patient was found to have no significant leukocytosis. The white cell count was nonelevated. Her initial creatinine was at 2.4. Urinalysis has not been done. Chest x-ray showed some mild pulmonary vascular congestion. There was no evidence of any pneumonia. EKG showed a right bundle branch block pattern. The patient was given IV fluids and following that she got transferred to our hospital and overall she received a total of 5 L of IV fluids. She was briefly placed on pressors to maintain her blood pressure and currently she is off the pressors for the past 6 hours. Repeat creatinine is near is down to 2. She is producing urine output although the urine is somewhat cloudy. No chest pain. Limited congested cough without any significant sputum production. A repeat chest x-ray was done today and shows a left basilar atelectasis. CAT scan of the brain that was done at [facility] showed mild cerebral atrophy and a 1.8 cm calcified right cerebral hemisphere meningioma. No altered mentation. No seizure activity. No focal neurological deficit. No worsening in the chronic swelling of the lower extremities. No hypoglycemic events as reported in history. On 11/02/2017 the patient is being seen for a follow-up. She is doing much better compared to yesterday. We have not with this any further episodes of syncope. The patient got resuscitated IV fluids and she was given more than 5 L of IV fluids and the patient's blood pressure stabilized and the patient's renal function is also improved. The patient has no significant leukocytosis pH is on empiric antibiotic coverage with IV Zosyn. The patient's white cell count is at 3.1. No significant drop in hemoglobin. Renal function is improving and the creatinine is down to 1.3. She did have an episode of hypoglycemia earlier this morning that was treated and the most recent blood sugar is up to 92. Urine cultures negative. Blood culture is negative. The ultrasound the abdomen showed nonspecific gas pattern and the patient has a surgically absent gallbladder. Kidneys are nonenlarged and there is no evidence of any hydronephrosis. Carotid Dopplers were suboptimal as the patient was snoring. There was no evidence of any significant lesion in the carotids. The patient has been feeling well and she has no other complaints otherwise for now. Objective - Vital Signs Vital signs: Vital Signs Temp 95.2 F L 11/02/17 11:23 Pulse 75 11/02/17 11:28 Resp 18 11/02/17 11:28 BP 112/66 11/02/17 11:23 Pulse Ox 100 11/02/17 11:23 Intake & Output 11/01/17 11/02/17 11/02/17 18:59 06:59 18:59 Intake Total 2480 600 1560 Output Total 380 500 600 Balance 2100 100 960 Weight 110.5 kg Intake: IV 3448 044 1674 Magnesium Sulfate-D5w Pmx 300 1 gm In Dextrose/Water 1 100ml.bag @ 100 mls/hr IVPB Q1H [facility] Rx#: [id number] Sodium Chloride 0.9% 1, 847 175 9188 000 ml @ 100 mls/hr IV . Q10H [facility] Rx#:[id number] Intake, IV Titration 50 Amount Piperacillin-Tazobactam 3 50 .375 gm In Dextrose/Water 1 50ml.bag @ 12.5 mls/hr IVPB Q12H [facility] Rx#: [id number] Oral 1280 310 Output: Urine 380 500 600 Uretheral (Cortez) 300 600 Other: Voiding Method Indwelling Catheter Indwelling Catheter Indwelling Catheter # Bowel Movements 2 - Exam Obese, comfortable likely distress.Head exam was generally normal. There was no scleral icterus or corneal arcus. Mucous membranes were moist. Neck is short and supple and there is crowding of posterior pharyngeal a Mallampati class IV. Lung sounds are diminished bilaterally in addition some crackles in the lung bases.Cardiac exam revealed the PMI to be normally situated and sized. The rhythm was regular and no extrasystoles were noted during several minutes of auscultation. The first and second heart sounds were normal and physiologic splitting of the second heart sound was noted. There were no murmurs, rubs, clicks, or gallops.Abdominal exam revealed normal bowel sounds. The abdomen was soft, non-tender, and without masses, organomegaly, or appreciable enlargement of the abdominal aorta. Patient is obese and the organs cannot be accurately palpated. Extremities are showing +1 pitting edema distal cyanosis or clubbing. Neurologically, the patient is awake and alert and is no focal logical deficits that this point. Cranial nerves are intact.Examination of the skin revealed no evidence of significant rashes, suspicious appearing nevi or other concerning lesions. - Labs CBC & Chem 7: 11/02/17 06:20 11/02/17 06:20 Labs: Abnormal Lab Results - Last 24 Hours (Table) 11/01/17 11/01/17 11/01/17 Range/Units 16:36 18:01 21:32 WBC (3.8-10.6) k/uL RBC (3.80-5.40) m/uL Hgb (11.4-16.0) gm/dL Hct (34.0-46.0) % MCHC (31.0-37.0) g/dL RDW (11.5-15.5) % Plt Count (150-450) k/uL Lymphocytes # (1.0-4.8) k/uL BUN (7-17) mg/dL Creatinine (0.52-1.04) mg/dL Glucose (74-99) mg/dL POC Glucose (mg/dL) 102 H 124 H (75-99) mg/dL Calcium (8.4-10.2) mg/dL Urine Appearance Turbid H (Clear) Urine Protein 1+ H (Negative) Urine Blood Moderate H (Negative) Ur Leukocyte Esterase Large H (Negative) Urine RBC 14 H (0-5) /hpf Urine WBC 98 H (0-5) /hpf Amorphous Sediment Rare H (None) /hpf Urine Mucus Rare H (None) /hpf 03/10/18 03/10/18 03/10/18 Range/Units 06:04 06:06 06:19 WBC (3.8-10.6) k/uL RBC (3.80-5.40) m/uL Hgb (11.4-16.0) gm/dL Hct (34.0-46.0) % MCHC (31.0-37.0) g/dL RDW (11.5-15.5) % Plt Count (150-450) k/uL Lymphocytes # (1.0-4.8) k/uL BUN (7-17) mg/dL Creatinine (0.52-1.04) mg/dL Glucose (74-99) mg/dL POC Glucose (mg/dL) 37 L 39 L 48 L (75-99) mg/dL Calcium (8.4-10.2) mg/dL Urine Appearance (Clear) Urine Protein (Negative) Urine Blood (Negative) Ur Leukocyte Esterase (Negative) Urine RBC (0-5) /hpf Urine WBC (0-5) /hpf Amorphous Sediment (None) /hpf Urine Mucus (None) /hpf 11/02/17 11/02/17 11/02/17 Range/Units 06:20 06:20 06:42 WBC 3.1 L (3.8-10.6) k/uL RBC 3.50 L (3.80-5.40) m/uL Hgb 9.3 L (11.4-16.0) gm/dL Hct 30.5 L (34.0-46.0) % MCHC 30.5 L (31.0-37.0) g/dL RDW 16.5 H (11.5-15.5) % Plt Count 66 L (150-450) k/uL Lymphocytes # 0.6 L (1.0-4.8) k/uL BUN 30 H (7-17) mg/dL Creatinine 1.63 H (0.52-1.04) mg/dL Glucose 49 L* (74-99) mg/dL POC Glucose (mg/dL) 57 L (75-99) mg/dL Calcium 7.8 L (8.4-10.2) mg/dL Urine Appearance (Clear) Urine Protein (Negative) Urine Blood (Negative) Ur Leukocyte Esterase (Negative) Urine RBC (0-5) /hpf Urine WBC (0-5) /hpf Amorphous Sediment (None) /hpf Urine Mucus (None) /hpf Microbiology - Last 24 Hours (Table) 11/01/17 08:30 Urine Culture - Final Urine,Catheterized 11/01/17 08:18 Blood Culture - Preliminary Blood No Growth after 24 hours 11/01/17 18:01 Urine Culture - Preliminary Urine,Catheterized Assessment and Plan Plan: Assessment 1 syncope, likely secondary to hypotension. The patient is neurologically intact and the patient's hypotension is recovered 2 acute hypotension, recovered and the patient's blood pressure has normalized 3 acute kidney injury, improving with fluid resuscitation, and the creatinine is down to 1.6 4 coronary artery disease with previous bypass surgery 5 right bundle branch block pattern on the EKG 6 insulin-dependent diabetes mellitus 7 diabetic peripheral neuropathy and retinopathy 8 obesity with a BMI of 40.6 9 hypothyroidism 10 hypertension 11 hyperlipidemia 12 recent hospitalization for pneumonia at [facility] 13 chronic back pain/degenerative arthritis/osteoarthritis/lumbosacral generative disc disease along with spinal stenosis/compression deformity of the left T12-L1 spine 14 irritable bowel syndrome 15 anemia 16 abnormal LFT, no abnormalities in the right upper quadrant and the liver and the patient has a surgical cholecystectomy 17 troponin leak, Singulair valvular troponin was at 0.149 18 meningioma Plan Continue normal saline and cut the rate down to 50 mL an hour. Continue IV Zosyn for another 24 hours. Monitor the blood sugar. Avoid hypoglycemia. Monitor the levels of the culture. Patient was resuscitated. No hypotension. No chest pain. We'll continue to follow. She is out of the intensive care unit for now.
[2017-11-02 17:15] LABS: Glucose,Whole Blood 82 mg/dL (75-99)
[2017-11-02] MEDS: ATORVASTATIN 20 MG TAB PO SCH (20:14)
[2017-11-02 21:19] LABS: Glucose,Whole Blood 127 mg/dL (75-99)
[2017-11-02] MEDS: INSULIN DETEMIR 100 UNIT/ML 10 ML VIAL SQ SCH (21:38)
--- NOTE | 2017-11-02 22:51 | P.PN ---
Subjective Progress Note Date: 11/02/17 Principal diagnosis: Syncope Patient is a 77-year-old female with a known history of coronary artery disease and coronary artery bypass graft, diabetes2 and diabetic retinopathy and peripheral neuropathy, hyperlipidemia and obesity and multiple other medical problems was initially presented to [facility] status post syncopal episode. Patient was apparently at physician's office and was waiting for her ride and suddenly she had a syncopal episode. Last about 20 seconds. Patient landed on the ground and EMS was called and patient was initially taken to [facility]. Patient was found have hypotensive with SBP 57 and was patient immediately transferred to [facility]. Approximately 3-4 weeks ago the patient was at [facility] treated for pneumonia. Chest x-ray showed mild pulmonary vascular condition. Creatinine 2.4 initially EKG right bundle branch block pattern Patient was started on pressor support.. CT head showed mild cerebral atrophy and a 1.8 cm calcified right cerebral hemisphere meningioma. Currently patient is communicating well. No denied any chest pain or shortness of breath. No seizure activity was noted. No altered mentation. No fever no chills. No nausea vomiting or diarrhea. No hyperglycemia. 11/02/2017 Patient is off pressor support. Currently blood pressure is stable. Septic workup has been negative so far. Urine culture showed no growth. Renal function improved with IV hydration. No complaints of chest pain or shortness of breath. No cough is from production. No nausea vomiting or abdominal pain. Patient is being transferred to telemetry unit. All other review of systems negative except the above Active Medications Acetaminophen (Tylenol Tab) 650 mg PO Q4HR PRN PRN Reason: Fever and/or Mild Pain Last Admin: 11/02/17 20:15 Dose: 650 mg Albuterol Sulfate (Ventolin Nebulized) 2.5 mg INHALATION RT-QID PRN PRN Reason: Shortness Of Breath Last Admin: 11/02/17 07:46 Dose: 2.5 mg Aspirin (Aspirin) 81 mg PO DAILY [facility] Last Admin: 11/02/17 08:32 Dose: 81 mg Atorvastatin Calcium (Lipitor) 20 mg PO HS [facility] Last Admin: 11/02/17 20:14 Dose: 20 mg Cholecalciferol (Vitamin D3) 2,000 unit PO DAILY [facility] Last Admin: 11/02/17 08:31 Dose: 2,000 unit Escitalopram Oxalate (Lexapro) 15 mg PO DAILY [facility] Last Admin: 11/02/17 08:31 Dose: 15 mg Famotidine (Pepcid) 20 mg PO DAILY [facility] Last Admin: 11/02/17 08:32 Dose: 20 mg Sodium Chloride (Saline 0.9%) 1,000 mls @ 50 mls/hr IV .Q20H [facility] Last Admin: 11/02/17 16:41 Dose: 50 mls/hr Piperacillin/Tazobactam/ (Dextrose 3.375 gm/ IV Solution) 50 mls @ 12.5 mls/hr IVPB Q12H [facility] Last Admin: 11/02/17 20:14 Dose: 12.5 mls/hr Insulin Aspart (Novolog) 0 unit SQ ACHS [facility] PRN Reason: Protocol Last Admin: 11/02/17 21:35 Dose: Not Given Insulin Detemir (Levemir) 40 unit SQ HS [facility] Last Admin: 11/02/17 21:38 Dose: 40 unit Miscellaneous Information (Magnesium Per Protocol) 1 each MISCELLANE DAILY PRN ; Protocol PRN Reason: Per Protocol Naloxone HCl (Narcan) 0.2 mg IV Q2M PRN PRN Reason: Opioid Reversal Nitroglycerin (Nitrostat) 0.4 mg SUBLINGUAL Q5M PRN PRN Reason: Chest Pain Pregabalin (Lyrica) 150 mg PO BID [facility] Last Admin: 11/02/17 20:14 Dose: 150 mg Objective - Vital Signs Vital signs: Vital Signs Temp 97.2 F L 11/02/17 18:53 Pulse 92 11/02/17 18:53 Resp 18 11/02/17 18:53 BP 141/60 11/02/17 18:53 Pulse Ox 99 11/02/17 18:53 Intake & Output 11/02/17 11/02/17 11/03/17 06:59 18:59 07:59 Intake Total 600 1260 Output Total 500 1200 Balance 100 60 Weight 110.5 kg Intake: IV 600 850 .9@ 100 700 Sodium Chloride 0.9% 1, 600 150 000 ml @ 50 mls/hr IV . Q20H [facility] Rx#:[id number] Intake, IV Titration 100 Amount Piperacillin-Tazobactam 3 100 .375 gm In Dextrose/Water 1 50ml.bag @ 12.5 mls/hr IVPB Q12H [facility] Rx#: [id number] Oral 310 Output: Urine 500 1200 Uretheral (Cortez) 300 800 Other: Voiding Method Indwelling Catheter Indwelling Catheter # Bowel Movements 2 - Exam PHYSICAL EXAMINATION: Patient is lying in the bed comfortably, no acute distress, awake alert and oriented.. HEENT: Normocephalic. Neck is supple. Pupils reactive. Nostrils clear. Oral cavity is moist. Ears reveal no drainage. Neck reveals no JVD, carotid bruits, or thyromegaly. CHEST EXAMINATION: Trachea is central. Symmetrical expansion. Lung martinez clear to auscultation and percussion. CARDIAC: Normal S1, S2 with no gallops. No murmurs ABDOMEN: Soft. Bowel sounds normal. No organomegaly. No abdominal bruits. Extremities: reveal no edema. No clubbing or cyanosis Neurologically awake, alert, oriented x3 with well-coordinated movements. No focal deficits noted Skin: No rash or skin lesions. Psychiatric: Coperative. Nonsuicidal Musculoskeletal: No joint swelling or deformity. Normal range of motion. - Labs CBC & Chem 7: 11/02/17 06:20 11/02/17 06:20 Labs: Abnormal Lab Results - Last 24 Hours (Table) 11/01/17 11/02/17 11/02/17 Range/Units 21:32 06:04 06:06 WBC (3.8-10.6) k/uL RBC (3.80-5.40) m/uL Hgb (11.4-16.0) gm/dL Hct (34.0-46.0) % MCHC (31.0-37.0) g/dL RDW (11.5-15.5) % Plt Count (150-450) k/uL Lymphocytes # (1.0-4.8) k/uL BUN (7-17) mg/dL Creatinine (0.52-1.04) mg/dL Glucose (74-99) mg/dL POC Glucose (mg/dL) 124 H 37 L 39 L (75-99) mg/dL Calcium (8.4-10.2) mg/dL 11/02/17 11/02/17 11/02/17 Range/Units 06:19 06:20 06:20 WBC 3.1 L (3.8-10.6) k/uL RBC 3.50 L (3.80-5.40) m/uL Hgb 9.3 L (11.4-16.0) gm/dL Hct 30.5 L (34.0-46.0) % MCHC 30.5 L (31.0-37.0) g/dL RDW 16.5 H (11.5-15.5) % Plt Count 66 L (150-450) k/uL Lymphocytes # 0.6 L (1.0-4.8) k/uL BUN 30 H (7-17) mg/dL Creatinine 1.63 H (0.52-1.04) mg/dL Glucose 49 L* (74-99) mg/dL POC Glucose (mg/dL) 48 L (75-99) mg/dL Calcium 7.8 L (8.4-10.2) mg/dL 11/02/17 11/02/17 Range/Units 06:42 21:12 WBC (3.8-10.6) k/uL RBC (3.80-5.40) m/uL Hgb (11.4-16.0) gm/dL Hct (34.0-46.0) % MCHC (31.0-37.0) g/dL RDW (11.5-15.5) % Plt Count (150-450) k/uL Lymphocytes # (1.0-4.8) k/uL BUN (7-17) mg/dL Creatinine (0.52-1.04) mg/dL Glucose (74-99) mg/dL POC Glucose (mg/dL) 57 L 127 H (75-99) mg/dL Calcium (8.4-10.2) mg/dL Microbiology - Last 24 Hours (Table) 11/01/17 18:01 Urine Culture - Final Urine,Catheterized 11/01/17 08:30 Urine Culture - Final Urine,Catheterized 11/01/17 08:18 Blood Culture - Preliminary Blood No Growth after 24 hours Assessment and Plan Assessment: Syncope due to hypertension Hypovolemic/septic shock. requiring pressor support and fluid boluses. Source of infection is not clear at this time. Urine culture negative. Possible viral illness Acute kidney injury likely due to hemodynamic instability/hypertension. Improving Multiple medical problems and comorbid conditions include: Bronchial asthma mild intermittent in nature, coronary artery disease, spinal stenosis, diabetes mellitus, diabetic retinopathy, diabetic peripheral neuropathy, hyperlipidemia, morbid obesity with a BMI of 40.6, history of iron deficiency anemia, hypothyroidism, chronic back pain, degenerative arthritis, osteoarthritis, [employer] lesion probably a meningioma that is calcified measuring 1.6 cm in size on the right, compression deformity of the T12-L1, depression, irritable bowel syndrome, remote history of DVT currently on no anticoagulants, Macular Degeneration. Coronary artery bypass surgery Last Stent Placement:: 1988 hx of Depression Thrombocytopenia DVT prophylaxis with SCDs Plan: Patient will be continued on IV fluids. They will function improved. Patient be continued on antibiotics in the form of Zosyn and follow-up final culture reports. Current with home medications and hold blood pressure medications. Insulin dosing. Follow up closely. Further recommendations based on the clinical course. Prognosis guarded. Time with Patient: Greater than 30
[2017-11-03] MEDS: PIPERACILLIN-TAZOBACTAM 3.375 GM in DEXTROSE/WATER 1 50ML.BAG IVPB SCH (05:25)
[2017-11-03 05:42] LABS: Glucose,Whole Blood 116 mg/dL (75-99)
[2017-11-03] MEDS: INSULIN ASPART 100 UNIT/ML 1 ML 10 ML VIAL SQ SCH ×4 (05:56→20:45)
[2017-11-03 06:27] LABS: Anisocytosis Slight; Basophils % (A) 0 %; Eosinophils # (A) 0.1 k/uL (0-0.7); Eosinophils % (A) 2 %; HCT 29.9 % (34.0-46.0); HGB 8.9 gm/dL (11.4-16.0); Hypochromasia Marked; Lymphocytes # (A) 0.6 k/uL (1.0-4.8); Lymphocytes % (A) 24 %; MCH 26.4 pg (25.0-35.0); MCHC 29.9 g/dL (31.0-37.0); MCV 88.3 fL (80.0-100.0); Monocytes # (A) 0.2 k/uL (0-1.0); Monocytes % (A) 6 %; Neutrophils # (A) 1.7 k/uL (1.3-7.7); Neutrophils % (A) 65 %; RBC 3.38 m/uL (3.80-5.40); RDW 16.4 % (11.5-15.5); WBC 2.7 k/uL (3.8-10.6)
[2017-11-03 06:42] LABS: Platelet Count 71 k/uL (150-450)
[2017-11-03 06:57] LABS: Calcium 8.1 mg/dL (8.4-10.2); Magnesium 1.8 mg/dL (1.6-2.3); Phosphorus 3.5 mg/dL (2.5-4.5); Potassium 4.4 mmol/L (3.5-5.1)
[2017-11-03 08:03] LABS: Polychromasia Present
[2017-11-03] MEDS: FAMOTIDINE 20 MG TAB PO SCH (09:06)
[2017-11-03] MEDS: ESCITALOPRAM 5 MG TAB PO SCH (09:06)
[2017-11-03] MEDS: ASPIRIN 81 MG PO SCH (09:06)
[2017-11-03] MEDS: CHOLECALCIFEROL 1,000 UNIT TAB PO SCH (09:06)
[2017-11-03] MEDS: SODIUM CHLORIDE 0.9% 1,000 ML IV SCH (09:07)
[2017-11-03] MEDS: PREGABALIN 75 MG CAP PO SCH ×2 (09:09→20:45)
--- NOTE | 2017-11-03 10:11 | P.PN ---
Subjective Progress Note Date: 11/03/17 Principal diagnosis: Fevers and sepsis Seen and examined for the follow-up of acute kidney injury. She was at [facility]. Hypotensive started on the levophed and transferred to [facility]. Currently doing better off pressors. Denies any nausea vomiting diarrhea. Objective - Vital Signs Vital signs: Vital Signs Temp 97.0 F L 11/03/17 08:00 Pulse 82 11/03/17 08:00 Resp 18 11/03/17 08:00 BP 145/65 11/03/17 08:00 Pulse Ox 99 11/03/17 08:00 Intake & Output 11/02/17 11/03/17 11/03/17 17:59 06:59 18:59 Intake Total 200 Output Total Balance 200 Weight Intake: IV .9@ 100 Sodium Chloride 0.9% 1, 000 ml @ 50 mls/hr IV . Q20H KARLA Rx#:[id number] Intake, IV Titration Amount Piperacillin-Tazobactam 3 .375 gm In Dextrose/Water 1 50ml.bag @ 12.5 mls/hr IVPB Q12H KARLA Rx#: [id number] Oral 200 Output: Urine Uretheral (Cortez) Other: Voiding Method Bedside Commode # Voids # Bowel Movements - Exam Lying in bed no acute distress S1 and S2 heard Lungs clear Abdomen soft bowel sounds present Cortez catheter draining urine No edema - Labs CBC & Chem 7: 11/03/17 05:23 11/03/17 05:23 Labs: Abnormal Lab Results - Last 24 Hours (Table) 11/02/17 11/03/17 11/03/17 Range/Units 21:12 05:23 05:23 WBC 2.7 L (3.8-10.6) k/uL RBC 3.38 L (3.80-5.40) m/uL Hgb 8.9 L (11.4-16.0) gm/dL Hct 29.9 L (34.0-46.0) % MCHC 29.9 L (31.0-37.0) g/dL RDW 16.4 H (11.5-15.5) % Plt Count 71 L (150-450) k/uL Lymphocytes # 0.6 L (1.0-4.8) k/uL BUN 23 H (7-17) mg/dL Creatinine 1.30 H (0.52-1.04) mg/dL Glucose 119 H (74-99) mg/dL POC Glucose (mg/dL) 127 H (75-99) mg/dL Calcium 8.1 L (8.4-10.2) mg/dL 11/03/17 Range/Units 05:40 WBC (3.8-10.6) k/uL RBC (3.80-5.40) m/uL Hgb (11.4-16.0) gm/dL Hct (34.0-46.0) % MCHC (31.0-37.0) g/dL RDW (11.5-15.5) % Plt Count (150-450) k/uL Lymphocytes # (1.0-4.8) k/uL BUN (7-17) mg/dL Creatinine (0.52-1.04) mg/dL Glucose (74-99) mg/dL POC Glucose (mg/dL) 116 H (75-99) mg/dL Calcium (8.4-10.2) mg/dL Microbiology - Last 24 Hours (Table) 11/01/17 18:01 Urine Culture - Final Urine,Catheterized 11/01/17 08:30 Urine Culture - Final Urine,Catheterized 11/01/17 08:18 Blood Culture - Preliminary Blood No Growth after 24 hours Assessment and Plan Assessment: Impression: #1 nonoliguric acute kidney injury secondary to ischemic ATN. #2 septic shock suspect influenza #3 CKD3 baseline creatinine 1.2 suspect nephrosclerosis Recommendations: #1 renal function improving and back to baseline. #2 avoid nephrotoxic agents and hypotensive episodes. Stable from nephrology point of view to be discharged to be followed up in the office in a week
[2017-11-03 12:45] LABS: Glucose,Whole Blood 181 mg/dL (75-99)
--- NOTE | 2017-11-03 15:25 | P.PN ---
Subjective Progress Note Date: 11/03/17 A pleasant 77-year-old female patient, presented to [facility] yesterday after she had a episodes of syncope. The patient felt weak and she briefly passed out. She was found to be hypotensive and her blood pressure was as low as 57 systolic. She was taken initially to [facility] and following that the patient got transferred to [facility] for further evaluation and treatment. The patient is known to have coronary artery disease and she has undergone previous bypass surgery. She is known to have obesity, insulin-dependent diabetes mellitus, hypertension, hyperlipidemia , diabetic peripheral neuropathy, hypothyroidism, chronic back pain, degenerative arthritis of the back and the knees, and previous history of T12- L1 compression deformity of the spine in addition to history of depression and irritable bowel syndrome. Approximately 3-4 weeks ago the patient was at [facility] treated for pneumonia. The patient had a preliminary workup at [facility]. The patient was found to have no significant leukocytosis. The white cell count was nonelevated. Her initial creatinine was at 2.4. Urinalysis has not been done. Chest x-ray showed some mild pulmonary vascular congestion. There was no evidence of any pneumonia. EKG showed a right bundle branch block pattern. The patient was given IV fluids and following that she got transferred to our hospital and overall she received a total of 5 L of IV fluids. She was briefly placed on pressors to maintain her blood pressure and currently she is off the pressors for the past 6 hours. Repeat creatinine is near is down to 2. She is producing urine output although the urine is somewhat cloudy. No chest pain. Limited congested cough without any significant sputum production. A repeat chest x-ray was done today and shows a left basilar atelectasis. CAT scan of the brain that was done at [facility] showed mild cerebral atrophy and a 1.8 cm calcified right cerebral hemisphere meningioma. No altered mentation. No seizure activity. No focal neurological deficit. No worsening in the chronic swelling of the lower extremities. No hypoglycemic events as reported in history. On 11/02/2017 the patient is being seen for a follow-up. She is doing much better compared to yesterday. We have not with this any further episodes of syncope. The patient got resuscitated IV fluids and she was given more than 5 L of IV fluids and the patient's blood pressure stabilized and the patient's renal function is also improved. The patient has no significant leukocytosis pH is on empiric antibiotic coverage with IV Zosyn. The patient's white cell count is at 3.1. No significant drop in hemoglobin. Renal function is improving and the creatinine is down to 1.3. She did have an episode of hypoglycemia earlier this morning that was treated and the most recent blood sugar is up to 92. Urine cultures negative. Blood culture is negative. The ultrasound the abdomen showed nonspecific gas pattern and the patient has a surgically absent gallbladder. Kidneys are nonenlarged and there is no evidence of any hydronephrosis. Carotid Dopplers were suboptimal as the patient was snoring. There was no evidence of any significant lesion in the carotids. The patient has been feeling well and she has no other complaints otherwise for now. On 11/03/2017, the patient is being seen for a follow-up. She is doing extremely well. Renal function is normalized and the patient's creatinine is down to 1.3. No syncope. No neurological deficit. No cardiac arrhythmias have been noted. Patient is resting comfortably in bed. Objective - Vital Signs Vital signs: Vital Signs Temp 97.7 F 11/03/17 11:53 Pulse 88 11/03/17 11:53 Resp 16 11/03/17 11:53 BP 133/63 11/03/17 11:53 Pulse Ox 99 11/03/17 11:53 Intake & Output 11/02/17 11/03/17 11/03/17 17:59 06:59 18:59 Intake Total 640 Output Total 625 Balance 15 Weight Intake: IV 150 .9@ 100 Sodium Chloride 0.9% 1, 150 000 ml @ 50 mls/hr IV . Q20H KARLA Rx#:[id number] Intake, IV Titration 50 Amount Piperacillin-Tazobactam 3 50 .375 gm In Dextrose/Water 1 50ml.bag @ 12.5 mls/hr IVPB Q12H KARLA Rx#: [id number] Oral 440 Output: Urine 625 Uretheral (Cortez) Other: Voiding Method Bedside Commode # Voids 1 # Bowel Movements 1 - Exam Obese, comfortable likely distress.Head exam was generally normal. There was no scleral icterus or corneal arcus. Mucous membranes were moist. Neck is short and supple and there is crowding of posterior pharyngeal a Mallampati class IV. Lung sounds are diminished bilaterally in addition some crackles in the lung bases.Cardiac exam revealed the PMI to be normally situated and sized. The rhythm was regular and no extrasystoles were noted during several minutes of auscultation. The first and second heart sounds were normal and physiologic splitting of the second heart sound was noted. There were no murmurs, rubs, clicks, or gallops.Abdominal exam revealed normal bowel sounds. The abdomen was soft, non-tender, and without masses, organomegaly, or appreciable enlargement of the abdominal aorta. Patient is obese and the organs cannot be accurately palpated. Extremities are showing +1 pitting edema distal cyanosis or clubbing. Neurologically, the patient is awake and alert and is no focal logical deficits that this point. Cranial nerves are intact.Examination of the skin revealed no evidence of significant rashes, suspicious appearing nevi or other concerning lesions. - Labs CBC & Chem 7: 11/03/17 05:23 11/03/17 05:23 Labs: Abnormal Lab Results - Last 24 Hours (Table) 11/02/17 11/03/17 11/03/17 Range/Units 21:12 05:23 05:23 WBC 2.7 L (3.8-10.6) k/uL RBC 3.38 L (3.80-5.40) m/uL Hgb 8.9 L (11.4-16.0) gm/dL Hct 29.9 L (34.0-46.0) % MCHC 29.9 L (31.0-37.0) g/dL RDW 16.4 H (11.5-15.5) % Plt Count 71 L (150-450) k/uL Lymphocytes # 0.6 L (1.0-4.8) k/uL BUN 23 H (7-17) mg/dL Creatinine 1.30 H (0.52-1.04) mg/dL Glucose 119 H (74-99) mg/dL POC Glucose (mg/dL) 127 H (75-99) mg/dL Calcium 8.1 L (8.4-10.2) mg/dL 11/03/17 11/03/17 Range/Units 05:40 12:23 WBC (3.8-10.6) k/uL RBC (3.80-5.40) m/uL Hgb (11.4-16.0) gm/dL Hct (34.0-46.0) % MCHC (31.0-37.0) g/dL RDW (11.5-15.5) % Plt Count (150-450) k/uL Lymphocytes # (1.0-4.8) k/uL BUN (7-17) mg/dL Creatinine (0.52-1.04) mg/dL Glucose (74-99) mg/dL POC Glucose (mg/dL) 116 H 181 H (75-99) mg/dL Calcium (8.4-10.2) mg/dL Microbiology - Last 24 Hours (Table) 11/01/17 08:18 Blood Culture - Preliminary Blood No Growth after 48 hours 11/01/17 18:01 Urine Culture - Final Urine,Catheterized 11/01/17 08:30 Urine Culture - Final Urine,Catheterized Assessment and Plan Plan: Assessment 1 syncope, likely secondary to hypotension. The patient is neurologically intact and the patient's hypotension is recovered 2 acute hypotension, recovered and the patient's blood pressure has normalized 3 acute kidney injury, improving and the patient's creatinine is down to 1.3 4 coronary artery disease with previous bypass surgery 5 right bundle branch block pattern on the EKG 6 insulin-dependent diabetes mellitus 7 diabetic peripheral neuropathy and retinopathy 8 obesity with a BMI of 40.6 9 hypothyroidism 10 hypertension 11 hyperlipidemia 12 recent hospitalization for pneumonia at [facility] 13 chronic back pain/degenerative arthritis/osteoarthritis/lumbosacral generative disc disease along with spinal stenosis/compression deformity of the left T12-L1 spine 14 irritable bowel syndrome 15 anemia, chronic 16 abnormal LFT, no abnormalities in the right upper quadrant and the liver and the patient has a surgical cholecystectomy 17 troponin leak, Singulair valvular troponin was at 0.149 18 meningioma 19 thrombocytopenia Plan All cultures of been negative. I'm going to discontinued his IV Zosyn. Monitor blood pressure. Monitor heart rate. Discharge planning is in progress.
[2017-11-03 16:53] LABS: Glucose,Whole Blood 220 mg/dL (75-99)
[2017-11-03] MEDS ORDERED: LOPERAMIDE 2 MG CAP PO PRN (16:56)
[2017-11-03] MEDS: ATORVASTATIN 20 MG TAB PO SCH (20:45)
[2017-11-03] MEDS: ACETAMINOPHEN TAB 325 MG TAB PO PRN (20:45)
[2017-11-03] MEDS: INSULIN DETEMIR 100 UNIT/ML 10 ML VIAL SQ SCH (20:45)
[2017-11-03 20:58] LABS: Glucose,Whole Blood 111 mg/dL (75-99)
--- NOTE | 2017-11-04 05:20 | PN ---
PROGRESS NOTE DATE OF SERVICE: 11/03/2017. REASON FOR FOLLOWUP: Possible sepsis and UTI. INTERVAL HISTORY: The patient is afebrile. She has been breathing comfortably. Denies having any chest pain. No shortness of breath or cough. No pain. No diarrhea. EXAMINATION: Blood pressure is 143/65 with a pulse of 90, temperature 97.7. She is 98% on 2 L nasal cannula. General description is an elderly female lying in bed in no distress. Respiratory system unlabored breathing, decreased breath sounds. No wheeze. Heart S1, S2. Regular rate and rhythm. Abdomen soft, no tenderness. Extremities: No edema of the feet. LABS: Hemoglobin 8.9, white count 2.7 with a BUN of 23, creatinine 1.30. Blood culture, urine culture so far negative. DIAGNOSTIC IMPRESSION AND PLAN: Patient admitted to the hospital with hypertension and sepsis. The patient did have a fever. He did have significantly positive UA with concern for possible urinary source. However, the culture has been negative. Antibiotic was discontinued today by the Pulmonary. She will be watched closely off antibiotic. If any change in clinical condition or new fever, she will be recultured before starting her on antibiotics. Continue supportive care. MMODL / IJN: [id number] /
[2017-11-04 06:16] LABS: Glucose,Whole Blood 151 mg/dL (75-99)
[2017-11-04] MEDS: INSULIN ASPART 100 UNIT/ML 1 ML 10 ML VIAL SQ SCH ×4 (06:55→21:40)
[2017-11-04 07:05] LABS: Calcium 8.8 mg/dL (8.4-10.2); Magnesium 1.6 mg/dL (1.6-2.3); Phosphorus 3.4 mg/dL (2.5-4.5)
[2017-11-04 07:10] LABS: Anisocytosis Slight; HCT 32.1 % (34.0-46.0); HGB 9.3 gm/dL (11.4-16.0); Hypochromasia Marked; MCHC 28.9 g/dL (31.0-37.0); MCV 89.7 fL (80.0-100.0); RBC 3.57 m/uL (3.80-5.40); RDW 16.7 % (11.5-15.5); WBC 2.5 k/uL (3.8-10.6)
[2017-11-04 07:13] LABS: Platelet Count 96 k/uL (150-450)
[2017-11-04] MEDS: FAMOTIDINE 20 MG TAB PO SCH (09:23)
[2017-11-04] MEDS: ASPIRIN 81 MG PO SCH (09:23)
[2017-11-04] MEDS: ESCITALOPRAM 5 MG TAB PO SCH (09:23)
[2017-11-04] MEDS: CHOLECALCIFEROL 1,000 UNIT TAB PO SCH (09:23)
[2017-11-04] MEDS: PREGABALIN 75 MG CAP PO SCH ×2 (09:25→20:22)
[2017-11-04 10:57] LABS: Eosinophils # (M) 0.13 k/uL (0-0.7); Lymphocytes # (M) 1.05 k/uL (1.0-4.8); Monocytes # (M) 0.18 k/uL (0-1.0); Neutrophils # (M) 1.15 k/uL (1.3-7.7); Neutrophils % (M) 46 %; Nucleated Red Blood Cells 0 /100 WBC (0-0); Total Cells Counted 100
[2017-11-04 11:19] LABS: Glucose,Whole Blood 197 mg/dL (75-99)
--- NOTE | 2017-11-04 12:29 | P.PN ---
Subjective Progress Note Date: 11/03/17 Principal diagnosis: Syncope Patient is a 77-year-old female with a known history of coronary artery disease and coronary artery bypass graft, diabetes2 and diabetic retinopathy and peripheral neuropathy, hyperlipidemia and obesity and multiple other medical problems was initially presented to [facility] status post syncopal episode. Patient was apparently at physician's office and was waiting for her ride and suddenly she had a syncopal episode. Last about 20 seconds. Patient landed on the ground and EMS was called and patient was initially taken to [facility]. Patient was found have hypotensive with SBP 57 and was patient immediately transferred to [facility]. Approximately 3-4 weeks ago the patient was at [facility] treated for pneumonia. Chest x-ray showed mild pulmonary vascular condition. Creatinine 2.4 initially EKG right bundle branch block pattern Patient was started on pressor support.. CT head showed mild cerebral atrophy and a 1.8 cm calcified right cerebral hemisphere meningioma. Currently patient is communicating well. No denied any chest pain or shortness of breath. No seizure activity was noted. No altered mentation. No fever no chills. No nausea vomiting or diarrhea. No hyperglycemia. 11/02/2017 Patient is off pressor support. Currently blood pressure is stable. Septic workup has been negative so far. Urine culture showed no growth. Renal function improved with IV hydration. No complaints of chest pain or shortness of breath. No cough is from production. No nausea vomiting or abdominal pain. Patient is being transferred to telemetry unit. 11/03/2017 Patient's blood pressure is stable today. Urine culture is negative otherwise. Continues to have neutropenic and thrombocytopenia. But improving. No commerce of chest pain or shortness of breath. No nausea vomiting or abdominal pain. Tolerating oral diet. We will consider starting back metoprolol and Imdur tomorrow as per her home dose. No other acute overnight issues. All other review of systems negative except the above Active Medications Acetaminophen (Tylenol Tab) 650 mg PO Q4HR PRN PRN Reason: Fever and/or Mild Pain Last Admin: 11/02/17 20:15 Dose: 650 mg Albuterol Sulfate (Ventolin Nebulized) 2.5 mg INHALATION RT-QID PRN PRN Reason: Shortness Of Breath Last Admin: 11/02/17 07:46 Dose: 2.5 mg Aspirin (Aspirin) 81 mg PO DAILY [facility] Last Admin: 11/02/17 08:32 Dose: 81 mg Atorvastatin Calcium (Lipitor) 20 mg PO HS [facility] Last Admin: 11/02/17 20:14 Dose: 20 mg Cholecalciferol (Vitamin D3) 2,000 unit PO DAILY [facility] Last Admin: 11/02/17 08:31 Dose: 2,000 unit Escitalopram Oxalate (Lexapro) 15 mg PO DAILY [facility] Last Admin: 11/02/17 08:31 Dose: 15 mg Famotidine (Pepcid) 20 mg PO DAILY [facility] Last Admin: 11/02/17 08:32 Dose: 20 mg Sodium Chloride (Saline 0.9%) 1,000 mls @ 50 mls/hr IV .Q20H [facility] Last Admin: 11/02/17 16:41 Dose: 50 mls/hr Piperacillin/Tazobactam/ (Dextrose 3.375 gm/ IV Solution) 50 mls @ 12.5 mls/hr IVPB Q12H [facility] Last Admin: 11/02/17 20:14 Dose: 12.5 mls/hr Insulin Aspart (Novolog) 0 unit SQ ACHS [facility] PRN Reason: Protocol Last Admin: 11/02/17 21:35 Dose: Not Given Insulin Detemir (Levemir) 40 unit SQ HS [facility] Last Admin: 11/02/17 21:38 Dose: 40 unit Miscellaneous Information (Magnesium Per Protocol) 1 each MISCELLANE DAILY PRN ; Protocol PRN Reason: Per Protocol Naloxone HCl (Narcan) 0.2 mg IV Q2M PRN PRN Reason: Opioid Reversal Nitroglycerin (Nitrostat) 0.4 mg SUBLINGUAL Q5M PRN PRN Reason: Chest Pain Pregabalin (Lyrica) 150 mg PO BID [facility] Last Admin: 11/02/17 20:14 Dose: 150 mg Objective - Vital Signs Vital signs: Vital Signs Temp 97.7 F 11/03/17 15:36 Pulse 92 11/03/17 15:36 Resp 16 11/03/17 15:36 BP 143/65 11/03/17 15:36 Pulse Ox 98 11/03/17 15:36 Intake & Output 11/03/17 11/03/17 11/04/17 06:59 18:59 06:59 Intake Total 640 Output Total 625 100 Balance 15 -100 Weight Intake: IV 150 Sodium Chloride 0.9% 1, 150 000 ml @ 50 mls/hr IV . Q20H [facility]LA Rx#:[id number] Intake, IV Titration 50 Amount Piperacillin-Tazobactam 3 50 .375 gm In Dextrose/Water 1 50ml.bag @ 12.5 mls/hr IVPB Q12H [facility]LA Rx#: [id number] Oral 440 Output: Urine 625 100 Other: Voiding Method Bedside Commode # Voids 1 2 # Bowel Movements 1 - Exam PHYSICAL EXAMINATION: Patient is lying in the bed comfortably, no acute distress, awake alert and oriented.. HEENT: Normocephalic. Neck is supple. Pupils reactive. Nostrils clear. Oral cavity is moist. Ears reveal no drainage. Neck reveals no JVD, carotid bruits, or thyromegaly. CHEST EXAMINATION: Trachea is central. Symmetrical expansion. Lung martinez clear to auscultation and percussion. CARDIAC: Normal S1, S2 with no gallops. No murmurs ABDOMEN: Soft. Bowel sounds normal. No organomegaly. No abdominal bruits. Extremities: reveal no edema. No clubbing or cyanosis Neurologically awake, alert, oriented x3 with well-coordinated movements. No focal deficits noted Skin: No rash or skin lesions. Psychiatric: Coperative. Nonsuicidal Musculoskeletal: No joint swelling or deformity. Normal range of motion. - Labs CBC & Chem 7: 11/04/17 06:15 11/04/17 06:15 Labs: Abnormal Lab Results - Last 24 Hours (Table) 11/02/17 11/03/17 11/03/17 Range/Units 21:12 05:23 05:23 WBC 2.7 L (3.8-10.6) k/uL RBC 3.38 L (3.80-5.40) m/uL Hgb 8.9 L (11.4-16.0) gm/dL Hct 29.9 L (34.0-46.0) % MCHC 29.9 L (31.0-37.0) g/dL RDW 16.4 H (11.5-15.5) % Plt Count 71 L (150-450) k/uL Lymphocytes # 0.6 L (1.0-4.8) k/uL BUN 23 H (7-17) mg/dL Creatinine 1.30 H (0.52-1.04) mg/dL Glucose 119 H (74-99) mg/dL POC Glucose (mg/dL) 127 H (75-99) mg/dL Calcium 8.1 L (8.4-10.2) mg/dL 11/03/17 11/03/17 11/03/17 Range/Units 05:40 12:23 16:47 WBC (3.8-10.6) k/uL RBC (3.80-5.40) m/uL Hgb (11.4-16.0) gm/dL Hct (34.0-46.0) % MCHC (31.0-37.0) g/dL RDW (11.5-15.5) % Plt Count (150-450) k/uL Lymphocytes # (1.0-4.8) k/uL BUN (7-17) mg/dL Creatinine (0.52-1.04) mg/dL Glucose (74-99) mg/dL POC Glucose (mg/dL) 116 H 181 H 220 H (75-99) mg/dL Calcium (8.4-10.2) mg/dL 11/03/17 Range/Units 20:44 WBC (3.8-10.6) k/uL RBC (3.80-5.40) m/uL Hgb (11.4-16.0) gm/dL Hct (34.0-46.0) % MCHC (31.0-37.0) g/dL RDW (11.5-15.5) % Plt Count (150-450) k/uL Lymphocytes # (1.0-4.8) k/uL BUN (7-17) mg/dL Creatinine (0.52-1.04) mg/dL Glucose (74-99) mg/dL POC Glucose (mg/dL) 111 H (75-99) mg/dL Calcium (8.4-10.2) mg/dL Microbiology - Last 24 Hours (Table) 11/01/17 08:18 Blood Culture - Preliminary Blood No Growth after 48 hours 11/01/17 18:01 Urine Culture - Final Urine,Catheterized Assessment and Plan Assessment: Syncope due to hypertension Hypovolemic/septic shock. requiring pressor support and fluid boluses. Source of infection likely urinary tract infection. But Urine culture negative. Possible viral illness is also being considered Acute kidney injury likely due to hemodynamic instability/hypertension. Improving Neutropenia and thrombocytopenia Multiple medical problems and comorbid conditions include: Bronchial asthma mild intermittent in nature, coronary artery disease, spinal stenosis, diabetes mellitus, diabetic retinopathy, diabetic peripheral neuropathy, hyperlipidemia, morbid obesity with a BMI of 40.6, history of iron deficiency anemia, hypothyroidism, chronic back pain, degenerative arthritis, osteoarthritis, EQUITY [employer]OR lesion probably a meningioma that is calcified measuring 1.6 cm in size on the right, compression deformity of the T12-L1, depression, irritable bowel syndrome, remote history of DVT currently on no anticoagulants, Macular Degeneration. Coronary artery bypass surgery Last Stent Placement:: 1988 hx of Depression Thrombocytopenia DVT prophylaxis with SCDs Plan: Renal function improved. DC'd IV fluids. Encourage oral intake. Patient be continued on antibiotics in the form of Zosyn and follow-up closely. Blood culture and urine culture is negative. Continue Current with home medications and hold blood pressure medications. Patient takes metoprolol and Imdur at home. Insulin dosing. Follow up closely. Further recommendations based on the clinical course. Prognosis guarded. Time with Patient: Greater than 30
--- NOTE | 2017-11-04 13:38 | ECHOF ---
Referral Reason:htn,rbbb MEASUREMENTS -------- HEIGHT: 160.0 cm WEIGHT: 107.0 kg BP: 151/66 RVIDd: 3.3 cm (< 3.3) IVSd: 1.2 cm (0.6 - 1.1) LVIDd: 4.5 cm (3.9 - 5.3) LVPWd: 1.2 cm (0.6 - 1.1) IVSs: 1.5 cm LVIDs: 3.4 cm LVPWs: 1.5 cm LAESV Index (A-L): 28.88 ml/m Ao Diam: 2.7 cm (2.0 - 3.7) AV Cusp: 1.3 cm (1.5 - 2.6) LA Diam: 3.8 cm (2.7 - 3.8) MV E Ata: 1.40 m/s MV DecT: 189 ms MV A Ata: 0.74 m/s MV E/A Ratio: 1.89 AV maxP.26 mmHg AV meanP.16 mmHg RAP: 15.00 mmHg RVSP: 62.54 mmHg FINDINGS -------- Sinus rhythm. This was a technically difficult study with suboptimal views. The left ventricular size is normal. There is mild concentric left ventricular hypertrophy. Overa ll left ventricular systolic function is normal with, an EF between 55 - 60 %. The right ventricle is mildly enlarged. LA is midly dilated 29-33ml/m2. RA appears enlarged. 3ml of Lumason was utilized for enhancement of images. There is moderate aortic valve sclerosis. There is no evidence of aortic regurgitation. There is mild aortic stenosis present. Peak/mean gradient across the Aortic Valve is 26.26mmHg / 16.16mmHg. The mitral valve leaflets are mildly thickened. Mild mitral annular calcification present. Mild m itral regurgitation is present. [id number] tricuspid regurgitation present. There is moderate pulmonary hypertension. The r ight ventricular systolic pressure, as measured by Doppler, is 62.54mmHg. Moderate pulmonic regurgitation. The aortic root size is normal. The inferior vena cava is dilated with poor inspiratory collapse which is consistent with estimated r ight atrial pressure of 20 mmHg. The pericardium is normal. There is no pericardial effusion. CONCLUSIONS -------- 1. Sinus rhythm. 2. This was a technically difficult study with suboptimal views. 3. The left ventricular size is normal. 4. There is mild concentric left ventricular hypertrophy. 5. Overall left ventricular systolic function is normal with, an EF between 55 - 60 %. 6. The right ventricle is mildly enlarged. 7. LA is midly dilated 29-33ml/m2. 8. RA appears enlarged. 9. 3ml of Lumason was utilized for enhancement of images. 10. There is moderate aortic valve sclerosis. 11. There is mild aortic stenosis present. 12. Peak/mean gradient across the Aortic Valve is 26.26mmHg / 16.16mmHg. 13. The mitral valve leaflets are mildly thickened. 14. Mild mitral annular calcification present. 15. Mild mitral regurgitation is present. 16. [id number] tricuspid regurgitation present. 17. There is moderate pulmonary hypertension. 18. The right ventricular systolic pressure, as measured by Doppler, is 62.54mmHg. 19. Moderate pulmonic regurgitation. 20. The aortic root size is normal. 21. The inferior vena cava is dilated with poor inspiratory collapse which is consistent with estimat ed right atrial pressure of 20 mmHg. 22. There is no pericardial effusion. RADIOISOTOPE TECHNOLOGIST: Yusef Silva RDCS
[2017-11-04 16:59] LABS: Glucose,Whole Blood 119 mg/dL (75-99)
[2017-11-04] MEDS: METOPROLOL TARTRATE 25 MG TAB PO SCH ×2 (17:21→20:20)
[2017-11-04] MEDS: ATORVASTATIN 20 MG TAB PO SCH (20:20)
[2017-11-04 21:36] LABS: Glucose,Whole Blood 184 mg/dL (75-99)
[2017-11-04] MEDS: INSULIN DETEMIR 100 UNIT/ML 10 ML VIAL SQ SCH (21:41)
--- NOTE | 2017-11-04 21:55 | P.PN ---
Subjective Progress Note Date: 11/04/17 Principal diagnosis: Syncope Patient is a 77-year-old female with a known history of coronary artery disease and coronary artery bypass graft, diabetes2 and diabetic retinopathy and peripheral neuropathy, hyperlipidemia and obesity and multiple other medical problems was initially presented to [facility] status post syncopal episode. Patient was apparently at physician's office and was waiting for her ride and suddenly she had a syncopal episode. Last about 20 seconds. Patient landed on the ground and EMS was called and patient was initially taken to [facility]. Patient was found have hypotensive with SBP 57 and was patient immediately transferred to [facility]. Approximately 3-4 weeks ago the patient was at [facility] treated for pneumonia. Chest x-ray showed mild pulmonary vascular condition. Creatinine 2.4 initially EKG right bundle branch block pattern Patient was started on pressor support.. CT head showed mild cerebral atrophy and a 1.8 cm calcified right cerebral hemisphere meningioma. Currently patient is communicating well. No denied any chest pain or shortness of breath. No seizure activity was noted. No altered mentation. No fever no chills. No nausea vomiting or diarrhea. No hyperglycemia. 11/02/2017 Patient is off pressor support. Currently blood pressure is stable. Septic workup has been negative so far. Urine culture showed no growth. Renal function improved with IV hydration. No complaints of chest pain or shortness of breath. No cough is from production. No nausea vomiting or abdominal pain. Patient is being transferred to telemetry unit. 11/03/2017 Patient's blood pressure is stable today. Urine culture is negative otherwise. Continues to have neutropenic and thrombocytopenia. But improving. No commerce of chest pain or shortness of breath. No nausea vomiting or abdominal pain. Tolerating oral diet. We will consider starting back metoprolol and Imdur tomorrow as per her home dose. No other acute overnight issues. 11/04/2017 Patient denied any new complaints. Blood pressure is stable otherwise. 2-D echo showed normal ejection fraction. No vegetations noted. Patient will be started back on blood pressure medications including metoprolol and Imdur. Otherwise anticipate discharge with ID final recommendations. All other review of systems negative except the above Objective - Vital Signs Vital signs: Vital Signs Temp 97.2 F L 11/04/17 20:00 Pulse 80 11/04/17 20:00 Resp 18 03/12/18 20:00 BP 120/69 11/04/17 20:00 Pulse Ox 99 11/04/17 20:00 Intake & Output 11/04/17 11/04/17 11/05/17 06:59 18:59 06:59 Intake Total 720 Output Total 400 Balance -400 720 Weight 107.1 kg Intake: Oral 720 Output: Urine 400 Other: Voiding Method Bedside Commode Bedside Commode Bedside Commode # Voids 2 1 # Bowel Movements 1 - Exam PHYSICAL EXAMINATION: Patient is lying in the bed comfortably, no acute distress, awake alert and oriented.. HEENT: Normocephalic. Neck is supple. Pupils reactive. Nostrils clear. Oral cavity is moist. Ears reveal no drainage. Neck reveals no JVD, carotid bruits, or thyromegaly. CHEST EXAMINATION: Trachea is central. Symmetrical expansion. Lung martinez clear to auscultation and percussion. CARDIAC: Normal S1, S2 with no gallops. No murmurs ABDOMEN: Soft. Bowel sounds normal. No organomegaly. No abdominal bruits. Extremities: reveal no edema. No clubbing or cyanosis Neurologically awake, alert, oriented x3 with well-coordinated movements. No focal deficits noted Skin: No rash or skin lesions. Psychiatric: Coperative. Nonsuicidal Musculoskeletal: No joint swelling or deformity. Normal range of motion. - Labs CBC & Chem 7: 11/04/17 06:15 11/04/17 06:15 Labs: Abnormal Lab Results - Last 24 Hours (Table) 11/04/17 11/04/17 11/04/17 Range/Units 06:05 06:15 06:15 WBC 2.5 L (3.8-10.6) k/uL RBC 3.57 L (3.80-5.40) m/uL Hgb 9.3 L (11.4-16.0) gm/dL Hct 32.1 L (34.0-46.0) % MCHC 28.9 L (31.0-37.0) g/dL RDW 16.7 H (11.5-15.5) % Plt Count 96 L (150-450) k/uL Neutrophils # (Manual) 1.15 L (1.3-7.7) k/uL BUN 18 H (7-17) mg/dL Creatinine 1.09 H (0.52-1.04) mg/dL Glucose 155 H (74-99) mg/dL POC Glucose (mg/dL) 151 H (75-99) mg/dL 11/04/17 11/04/17 11/04/17 Range/Units 11:17 16:44 21:32 WBC (3.8-10.6) k/uL RBC (3.80-5.40) m/uL Hgb (11.4-16.0) gm/dL Hct (34.0-46.0) % MCHC (31.0-37.0) g/dL RDW (11.5-15.5) % Plt Count (150-450) k/uL Neutrophils # (Manual) (1.3-7.7) k/uL BUN (7-17) mg/dL Creatinine (0.52-1.04) mg/dL Glucose (74-99) mg/dL POC Glucose (mg/dL) 197 H 119 H 184 H (75-99) mg/dL Microbiology - Last 24 Hours (Table) 11/01/17 08:18 Blood Culture - Preliminary Blood No Growth after 72 hours Assessment and Plan Assessment: Syncope due to hypertension Hypovolemic/septic shock. requiring pressor support and fluid boluses. Source of infection likely urinary tract infection. But Urine culture negative. Possible viral illness is also being considered. Blood cultures negative. Chest x-ray negative. 2-D echo showed no vegetations. Normal EF. Acute kidney injury likely due to hemodynamic instability/hypertension. 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 Coronary artery bypass surgery Last Stent Placement:: 1988 hx of Depression Thrombocytopenia DVT prophylaxis with SCDs Plan: Renal function improved. DC'd IV fluids. Encourage oral intake. Antibiotics have been discontinued. Blood culture and urine culture is negative. Continue Current with home medications and hold blood pressure medications. Patient takes metoprolol and Imdur at home. Insulin dosing. Follow up closely. Further recommendations based on the clinical course. Prognosis guarded. Time with Patient: Greater than 30
--- NOTE | 2017-11-04 22:09 | PN ---
PROGRESS NOTE Patient is seen for followup for acute kidney injury. Her renal function has improved, with creatinine going down from about 2 mg/dL on initial admission to 1.09 now. Patient is doing very well. She is off of IV fluids, tolerating oral intake, possibly going home soon. On examination, blood pressure is 172/64, heart rate 96 per minute. She is afebrile. EXAMINATION OF THE HEART: S1, S2. EXAMINATION OF LUNGS: Bilateral breath sounds are heard. ABDOMEN: Soft, non-tender. Examination of lower extremities shows no evidence of edema. CARROT TIER exam is grossly intact. Patient moving all 4 extremities. No focal deficits are noted. Labs reveal sodium 142, potassium 5.0, chloride 104, BUN 18, serum creatinine 1.09, hemoglobin 9.3 g/dL. Phosphorus is 3.4. ASSESSMENT: 1. Acute kidney injury, acute tubular necrosis secondary to hypotension, hypoperfusion and sepsis, currently improved. 2. Chronic kidney disease, stage III, baseline creatinine about 1.2, secondary to nephrosclerosis. 3. Recent history of influenza, status post Tamiflu. PLAN: Maintain good oral intake. Patient is stable for discharge from nephrology standpoint. MMODL / IJN: [id number] /
--- NOTE | 2017-11-04 22:18 | PN ---
PROGRESS NOTE DATE OF SERVICE: 11/04/17 REASON FOR FOLLOWUP: Possible sepsis and UTI. INTERVAL HISTORY: The patient is afebrile. She has been breathing comfortably. Denies having any chest pain, shortness of breath or cough. No abdominal pain or any diarrhea. EXAMINATION: Blood pressure is 172/64 with a pulse of 96, temperature of 98, she is 94% on room air. General description is an elderly female lying in bed in no distress. Respiratory system unlabored breathing. Clear to auscultation anteriorly. Heart S1, S2. Regular rate and rhythm. Abdomen soft, no tenderness. Extremities: No edema of the feet. LABS: Hemoglobin 9.2, white count 2.5, BUN of 18, creatinine 1.09. Blood and urine culture has been negative. DIAGNOSTIC IMPRESSION AND PLAN: Patient admitted to the hospital with hypertension and subsequently did have a fever with concern for possibly urinary source. However, urine cultures came back negative. Her fever has resolved. Antibiotic was discontinued by Pulmonary. She did okay so far without change in condition noted or recurrence of fever. Hence, we will watch her closely off antibiotic therapy. Continue supportive care. MMODL / IJN: [id number] /
[2017-11-04 23:57] VITALS: RESP 16
[2017-11-05 04:48] VITALS: BP 153/72; PULSE 69; TEMP 97.2
[2017-11-05 06:24] LABS: Glucose,Whole Blood 112 mg/dL (75-99)
[2017-11-05] MEDS: INSULIN ASPART 100 UNIT/ML 1 ML 10 ML VIAL SQ SCH (06:26)
[2017-11-05 07:09] LABS: Anisocytosis Slight; HCT 29.6 % (34.0-46.0); HGB 8.7 gm/dL (11.4-16.0); Hypochromasia Marked; MCH 26.4 pg (25.0-35.0); MCHC 29.4 g/dL (31.0-37.0); MCV 89.8 fL (80.0-100.0); Mean Platelet Volume 10.8; RBC 3.29 m/uL (3.80-5.40); RDW 16.9 % (11.5-15.5); WBC 2.2 k/uL (3.8-10.6)
[2017-11-05 07:20] LABS: Platelet Count 99 k/uL (150-450)
[2017-11-05 07:24] LABS: Calcium 8.8 mg/dL (8.4-10.2); Magnesium 1.4 mg/dL (1.6-2.3); Phosphorus 3.8 mg/dL (2.5-4.5); Potassium 4.6 mmol/L (3.5-5.1)
== END 2017-11-05 07:55 | disposition home health service (06) | DRG 871 ==
LOC: EC 17:57 → 6ICU 20:08 → 6SEL 11-01 15:53
PROVIDERS: ADMIT Hospitalist; ATTEND Hospitalist
DX: A41.9 Sepsis, unspecified organism (principal); N17.0 Acute kidney failure with tubular necrosis; R65.21 Severe sepsis with septic shock; R57.1 Hypovolemic shock; E11.22 Type 2 diabetes mellitus with diabetic chronic kidney disease; D69.6 Thrombocytopenia, unspecified; D70.9 Neutropenia, unspecified; E11.319 Type 2 diabetes mellitus with unspecified diabetic retinopathy without macular edema; E11.42 Type 2 diabetes mellitus with diabetic polyneuropathy; N18.3 Chronic kidney disease, stage 3 (moderate); Z68.41 Body mass index [BMI] 40.0-44.9, adult; N39.0 Urinary tract infection, site not specified; J98.11 Atelectasis; I25.10 Atherosclerotic heart disease of native coronary artery without angina pectoris; E78.5 Hyperlipidemia, unspecified; F32.9 Major depressive disorder, single episode, unspecified; E03.9 Hypothyroidism, unspecified; H35.30 Unspecified macular degeneration; E66.01 Morbid (severe) obesity due to excess calories; D50.9 Iron deficiency anemia, unspecified; I12.9 Hypertensive chronic kidney disease with stage 1 through stage 4 chronic kidney disease, or unspecified chronic kidney disease; E11.649 Type 2 diabetes mellitus with hypoglycemia without coma; E83.42 Hypomagnesemia; I45.10 Unspecified right bundle-branch block; J45.20 Mild intermittent asthma, uncomplicated; K58.9 Irritable bowel syndrome, unspecified; M51.37 Other intervertebral disc degeneration, lumbosacral region; M48.07 Spinal stenosis, lumbosacral region; D32.9 Benign neoplasm of meninges, unspecified; J44.9 Chronic obstructive pulmonary disease, unspecified; G89.29 Other chronic pain; Z95.1 Presence of aortocoronary bypass graft; Z87.01 Personal history of pneumonia (recurrent); Z90.49 Acquired absence of other specified parts of digestive tract; Z95.5 Presence of coronary angioplasty implant and graft; Z86.718 Personal history of other venous thrombosis and embolism; Z79.82 Long term (current) use of aspirin; Z79.899 Other long term (current) drug therapy; Z79.4 Long term (current) use of insulin; Z88.5 Allergy status to narcotic agent; Z91.041 Radiographic dye allergy status; Z82.49 Family history of ischemic heart disease and other diseases of the circulatory system
CPT/HCPCS: 36415; 71045; 71046; 76705; 76770; 80048; 80053; 81001; 83036; 83605; 83735; 84100; 84484; 85025; 87040; 87086; 87502; 93306; 93880; 94640; 94760; 96365; 99291

== ENCOUNTER 2020-04-26 11:41 | Emergency (ER) | payer MEDICARE, BC ==
[~2020-04-26 11:41] MED LIST: EPINEPHrine 10 ML SYRINGE (0.1 MG/ML) ONE; SODIUM BICARB 8.4% 50 ML SYR (1 MEQ/ML) ONE
[2020-04-26] MEDS ORDERED: SODIUM CHLORIDE 0.9% 1,000 ML IV STA (11:54)
[2020-04-26 12:00] LABS: Glucose,Whole Blood 271 mg/dL (75-99)
[2020-04-26 12:18] LABS: ABG Base Excess 3.8 mmol/L; ABG HCO3 31 mmol/L (21-25); ABG Oxygen Saturation 98.1 % (94-97); ABG PH 7.22 (7.35-7.45); ABG PO2 133 mmHg (83-108); ABG TCO2 34 mmol/L (19-24); Allen Test Performed? Yes
--- NOTE | 2020-04-26 12:32 | ED ---
General Adult HPI - General Chief complaint: Cardiac Arrest/CPR Stated complaint: CPR Time Seen by Provider: 04/26/20 11:41 Source: patient, EMS, RN notes reviewed, old records reviewed Mode of arrival: EMS Limitations: altered mental status - History of Present Illness Initial comments: This is an 79-year-old female presents emergency Department from cardiology [facility]. Patient was here for a checkup and was just leaving office when she got a car and felt lightheaded and then passed out when EMS arrived they noticed that the patient was in asystole and started CPR and bagging the patient. They were unable to get a line said no epinephrine was given the patient was not able to be intubated. Patient arrived in asystole and CPR was continued and IV access was started and the patient was given epinephrine. I have point time intubated the patient. No other history was available this time. - Related Data Home Medications Medication Instructions Recorded Confirmed Aspirin EC [Ecotrin Low Dose] 81 mg PO DAILY 10/31/17 04/26/20 Atorvastatin Calcium [Lipitor] 20 mg PO DAILY 10/31/17 04/26/20 Escitalopram [Lexapro] 10 mg PO DAILY 10/31/17 04/26/20 Famotidine [Pepcid] 20 mg PO DAILY 10/31/17 04/26/20 Insulin Aspart [NovoLOG Flexpen] See Protocol SQ AC-TID 10/31/17 04/26/20 Insulin Glargine,Hum.rec.anlog 17 unit SQ HS 10/31/17 04/26/20 [Basaglar Kwikpen U-100] Nitroglycerin Sl Tabs [Nitrostat] 0.4 mg SL Q5M PRN 10/31/17 04/26/20 Albuterol Nebulized [Ventolin 2.5 mg INHALATION RT-QID PRN 11/01/17 04/26/20 Nebulized] Ferrous Sulfate [Iron (65 MG 325 mg PO DAILY 11/01/17 04/26/20 Elemental)] Isosorbide Mononitrate ER [Imdur] 30 mg PO DAILY 11/01/17 04/26/20 Metoprolol Tartrate [Lopressor] 12.5 mg PO BID 11/01/17 04/26/20 Albuterol Inhaler [Ventolin Hfa 2 puff INHALATION RT-Q4H PRN 04/26/20 04/26/20 Inhaler] Cholestyramine (with Sugar) 4 gm PO BID 04/26/20 04/26/20 [Cholestyramine Packet] Furosemide [Lasix] 40 mg PO DAILY 04/26/20 04/26/20 Magnesium Oxide [Nettles] 500 mg PO BID 04/26/20 04/26/20 Nystatin [Nystop] 1 applic TOPICAL BID 04/26/20 04/26/20 Pregabalin [Lyrica] 200 mg PO BID 04/26/20 04/26/20 Allergies Allergy/AdvReac Type Severity Reaction Status Date / Time codeine Allergy Unknown Verified 10/31/17 18:40 Iodinated Contrast Media Allergy Rash/Hives Verified 10/31/17 18:40 Review of Systems ROS Statement: Those systems with pertinent positive or pertinent negative responses have been documented in the HPI. ROS Other: All systems not noted in ROS Statement are negative. 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 that is calcified measuring 1.6 cm in size on the right, compression deformity of the T12-L1, depression, irritable bowel syndrome, remote history of DVT currently on no anticoagulants,Macular Degeneration History of Any Multi-Drug Resistant Organisms: None Reported Past Surgical History: Cholecystectomy, Coronary Bypass/CABG, Heart Cathet erization With Stent Additional Past Surgical History / Comment(s): Coronary artery bypass surgery, axillary lymph node removal/biopsy, previous cardiac catheterization, pasha cystectomy Date of Last Stent Placement:: 1988 Past Psychological History: Depression Smoking Status: Unknown if ever smoked Past Alcohol Use History: None Reported Past Drug Use History: None Reported - Past Family History Mother Family Medical History: Myocardial Infarction ([place]) General Exam - General Exam Comments Initial Comments: GENERAL: Patient is unresponsive. EYES: The sclera were anicteric and conjunctiva were pink and moist. PULMONARY: Patient was being bagged there was no spontaneous breath sounds. CARDIOVASCULAR: Patient had no heart sounds ABDOMEN: Soft and nontender SKIN: Skin is clear with no lesions or rashes and otherwise unremarkable. NEUROLOGIC: Patient had GCS of 3 MUSCULOSKELETAL: Patient was not making any spontaneous movement Limitations: altered mental status Course Vital Signs 04/26/20 04/26/20 04/26/20 12:02 12:30 12:45 Pulse Rate 116 H 98 88 Respiratory 18 8 L 5 L Rate Blood Pressure 157/83 174/85 151/71 O2 Sat by Pulse 95 94 L Oximetry 04/26/20 04/26/20 04/26/20 13:00 13:15 13:30 Pulse Rate 80 72 76 Respiratory 0 L 0 L 5 L Rate Blood Pressure 119/55 101/41 108/47 O2 Sat by Pulse 93 L 91 L 88 L Oximetry 04/26/20 04/26/20 04/26/20 13:45 14:00 14:15 Pulse Rate 75 69 66 Respiratory 3 L 3 L 3 L Rate Blood Pressure 97/49 88/36 90/41 O2 Sat by Pulse 89 L 89 L 89 L Oximetry 04/26/20 14:30 Pulse Rate 67 Respiratory 4 L Rate Blood Pressure 93/46 O2 Sat by Pulse 89 L Oximetry Procedures - Intubation Laryngoscope: Coreas Size: 3 ET Tube Size: 7.5 ET Tube Uncuffed: No Tube Placement Confirmation: visualized tube passing through cords, equal breath sounds bilaterally, no breath sounds over epigastrium, confirmation by capnometry Patient Tolerated Procedure: well Intubation Complications: none Medical Decision Making - Medical Decision Making patient remained in asystole until 1152 which point time the patient's pulse was returned. I spoke with the niece in the family room and she indicated that she spoke with the daughter and the daughter does not want us to continue performing CPR if it occurs again. Chest x-ray shows congestive heart failure. Daughter arrived and determined that she did not want her mother on a ventilator at all because the mother had requested this a few months ago. We then removed the ventilator and the patient was apneic and blood pressure was on a downward progression and she did not want any intervention. After patient was removed from the ventilator she went into asystole and I pronounced the patient 250 - Lab Data Result diagrams: 04/26/20 12:49 04/26/20 12:49 Lab Results 04/26/20 04/26/20 04/26/20 Range/Units 11:59 12:16 12:49 WBC 4.7 (3.8-10.6) k/uL RBC 3.80 (3.80-5.40) m/uL Hgb 10.1 L (11.4-16.0) gm/dL Hct 34.6 (34.0-46.0) % MCV 91.1 (80.0-100.0) fL MCH 26.6 (25.0-35.0) pg MCHC 29.2 L (31.0-37.0) g/dL RDW 16.9 H (11.5-15.5) % Plt Count 95 L (150-450) k/uL Neutrophils % 78 % Lymphocytes % 15 % Monocytes % 4 % Eosinophils % 2 % Basophils % 1 % Neutrophils # 3.6 (1.3-7.7) k/uL Lymphocytes # 0.7 L (1.0-4.8) k/uL Monocytes # 0.2 (0-1.0) k/uL Eosinophils # 0.1 (0-0.7) k/uL Basophils # 0.0 (0-0.2) k/uL Manual Slide Review Performed Hypochromasia Marked Anisocytosis Slight PT (9.0-12.0) sec INR (<1.2) APTT (22.0-30.0) sec Sample Site rbrach ABG pH 7.22 L (7.35-7.45) ABG pCO2 77 H* (35-45) mmHg ABG pO2 133 H (83-108) mmHg ABG HCO3 31 H (21-25) mmol/L ABG Total CO2 34 H (19-24) mmol/L ABG O2 Saturation 98.1 H (94-97) % ABG Base Excess 3.8 mmol/L Alvaro Test Yes FiO2 100 % Sodium (137-145) mmol/L Potassium (3.5-5.1) mmol/L Chloride (98-107) mmol/L Carbon Dioxide (22-30) mmol/L Anion Gap mmol/L BUN (7-17) mg/dL Creatinine (0.52-1.04) mg/dL Est GFR (CKD-EPI)AfAm (>60 ml/min/1.73 sqM) Est GFR (CKD-EPI)NonAf (>60 ml/min/1.73 sqM) Glucose (74-99) mg/dL POC Glucose (mg/dL) 271 H (75-99) mg/dL POC Glu Clinical Staff Anesthesiologist ID Kina Lopez Calcium (8.4-10.2) mg/dL Magnesium (1.6-2.3) mg/dL Total Bilirubin (0.2-1.3) mg/dL AST (14-36) U/L ALT (4-34) U/L Alkaline Phosphatase (38-126) U/L Troponin I (0.000-0.034) ng/mL Total Protein (6.3-8.2) g/dL Albumin (3.5-5.0) g/dL Stool Occult Blood (Negative) 04/26/20 04/26/20 04/26/20 Range/Units 12:49 12:49 12:49 WBC (3.8-10.6) k/uL RBC (3.80-5.40) m/uL Hgb (11.4-16.0) gm/dL Hct (34.0-46.0) % MCV (80.0-100.0) fL MCH (25.0-35.0) pg MCHC (31.0-37.0) g/dL RDW (11.5-15.5) % Plt Count (150-450) k/uL Neutrophils % % Lymphocytes % % Monocytes % % Eosinophils % % Basophils % % Neutrophils # (1.3-7.7) k/uL Lymphocytes # (1.0-4.8) k/uL Monocytes # (0-1.0) k/uL Eosinophils # (0-0.7) k/uL Basophils # (0-0.2) k/uL Manual Slide Review Hypochromasia Anisocytosis PT 10.9 (9.0-12.0) sec INR 1.1 (<1.2) APTT 26.9 (22.0-30.0) sec Sample Site ABG pH (7.35-7.45) ABG pCO2 (35-45) mmHg ABG pO2 (83-108) mmHg ABG HCO3 (21-25) mmol/L ABG Total CO2 (19-24) mmol/L ABG O2 Saturation (94-97) % ABG Base Excess mmol/L Alvaro Test FiO2 % Sodium 137 (137-145) mmol/L Potassium 5.0 (3.5-5.1) mmol/L Chloride 92 L (98-107) mmol/L Carbon Dioxide 32 H (22-30) mmol/L Anion Gap 13 mmol/L BUN 25 H (7-17) mg/dL Creatinine 1.29 H (0.52-1.04) mg/dL Est GFR (CKD-EPI)AfAm 45 (>60 ml/min/1.73 sqM) Est GFR (CKD-EPI)NonAf 39 (>60 ml/min/1.73 sqM) Glucose 235 H (74-99) mg/dL POC Glucose (mg/dL) (75-99) mg/dL POC Glu Clinical Staff Anesthesiologist ID Calcium 8.4 (8.4-10.2) mg/dL Magnesium 2.2 (1.6-2.3) mg/dL Total Bilirubin 1.1 (0.2-1.3) mg/dL AST 34 (14-36) U/L ALT 14 (4-34) U/L Alkaline Phosphatase 136 H (38-126) U/L Troponin I 0.040 H* (0.000-0.034) ng/mL Total Protein 6.5 (6.3-8.2) g/dL Albumin 3.6 (3.5-5.0) g/dL Stool Occult Blood (Negative) 04/26/20 Range/Units 12:49 WBC (3.8-10.6) k/uL RBC (3.80-5.40) m/uL Hgb (11.4-16.0) gm/dL Hct (34.0-46.0) % MCV (80.0-100.0) fL MCH (25.0-35.0) pg MCHC (31.0-37.0) g/dL RDW (11.5-15.5) % Plt Count (150-450) k/uL Neutrophils % % Lymphocytes % % Monocytes % % Eosinophils % % Basophils % % Neutrophils # (1.3-7.7) k/uL Lymphocytes # (1.0-4.8) k/uL Monocytes # (0-1.0) k/uL Eosinophils # (0-0.7) k/uL Basophils # (0-0.2) k/uL Manual Slide Review Hypochromasia Anisocytosis PT (9.0-12.0) sec INR (<1.2) APTT (22.0-30.0) sec Sample Site ABG pH (7.35-7.45) ABG pCO2 (35-45) mmHg ABG pO2 (83-108) mmHg ABG HCO3 (21-25) mmol/L ABG Total CO2 (19-24) mmol/L ABG O2 Saturation (94-97) % ABG Base Excess mmol/L Alvaro Test FiO2 % Sodium (137-145) mmol/L Potassium (3.5-5.1) mmol/L Chloride (98-107) mmol/L Carbon Dioxide (22-30) mmol/L Anion Gap mmol/L BUN (7-17) mg/dL Creatinine (0.52-1.04) mg/dL Est GFR (CKD-EPI)AfAm (>60 ml/min/1.73 sqM) Est GFR (CKD-EPI)NonAf (>60 ml/min/1.73 sqM) Glucose (74-99) mg/dL POC Glucose (mg/dL) (75-99) mg/dL POC Glu Clinical Staff Anesthesiologist ID Calcium (8.4-10.2) mg/dL Magnesium (1.6-2.3) mg/dL Total Bilirubin (0.2-1.3) mg/dL AST (14-36) U/L ALT (4-34) U/L Alkaline Phosphatase (38-126) U/L Troponin I (0.000-0.034) ng/mL Total Protein (6.3-8.2) g/dL Albumin (3.5-5.0) g/dL Stool Occult Blood Positive H (Negative) Critical Care Time Critical Care Time: Yes Total Critical Care Time: 35 Disposition Clinical Impression: Cardiac arrest Disposition: Referrals: Mehrdad Chery MD [Primary Care Provider] - 1-2 days Preliminary Cause of : Cardio pulmonary arrest
[2020-04-26 12:40] LABS: ABG PCO2 77 mmHg (35-45)
--- NOTE | 2020-04-26 12:42 | XR ---
EXAMINATION TYPE: XR chest 1V portable DATE OF EXAM: 04/26/2020 COMPARISON: Chest x-ray November 11, 2017. HISTORY: Altered mental status and weakness. Chest pain. TECHNIQUE: Single AP portable frontal supine view of the chest is obtained. FINDINGS: New endotracheal tube terminates in the aortic knob level, approximately 3 cm above yeyo . Overlying sternal wires and mediastinal clips redemonstrated. Patient rotated to right making andrew luation slightly suboptimal. Cardiomegaly redemonstrated. New central alveolar and interstitial opaci ties with curly B lines and at least small right pleural effusion. Low lung volumes redemonstrated. Gas distended stomach bubble noted. This may be products of attempted CPR, correlate clinically. IMPRESSION: 1. New endotracheal tube satisfactory in position. 2. Correlate for CHF exacerbation as there is cardiomegaly with new moderate alveolar and interstitia l edema and at least small to moderate size right pleural effusion felt present. 3. Gas distended stomach bubble noted, consider NG tube placement or decompression.
[2020-04-26 13:17] LABS: Albumin 3.6 g/dL (3.5-5.0); Anisocytosis Slight; Basophils % (A) 1 %; Calcium 8.4 mg/dL (8.4-10.2); Eosinophils # (A) 0.1 k/uL (0-0.7); Eosinophils % (A) 2 %; HCT 34.6 % (34.0-46.0); HGB 10.1 gm/dL (11.4-16.0); Hypochromasia Marked; Lymphocytes # (A) 0.7 k/uL (1.0-4.8); Lymphocytes % (A) 15 %; MCH 26.6 pg (25.0-35.0); MCHC 29.2 g/dL (31.0-37.0); MCV 91.1 fL (80.0-100.0); Magnesium 2.2 mg/dL (1.6-2.3); Mean Platelet Volume 10.4; Monocytes # (A) 0.2 k/uL (0-1.0); Monocytes % (A) 4 %; Neutrophils # (A) 3.6 k/uL (1.3-7.7); Neutrophils % (A) 78 %; RDW 16.9 % (11.5-15.5); Total Bilirubin 1.1 mg/dL (0.2-1.3); Total Protein 6.5 g/dL (6.3-8.2); WBC 4.7 k/uL (3.8-10.6)
[2020-04-26 13:20] LABS: INR 1.1 (<1.2); Partial Thromboplastin Time 26.9 sec (22.0-30.0); Prothrombin Time 10.9 sec (9.0-12.0)
[2020-04-26] MEDS ORDERED: LORazepam 2 MG/ML INJ IV STA (13:29)
[2020-04-26 13:43] LABS: Platelet Count 95 k/uL (150-450)
[2020-04-26 14:54] VITALS: BP 52/34; PULSE 44; RESP 0
== END 2020-04-26 16:32 | disposition expired ==
LOC: EC 11:41
DX: I46.9 Cardiac arrest, cause unspecified (principal); F32.9 Major depressive disorder, single episode, unspecified; J45.909 Unspecified asthma, uncomplicated; I25.10 Atherosclerotic heart disease of native coronary artery without angina pectoris; E11.40 Type 2 diabetes mellitus with diabetic neuropathy, unspecified; E78.5 Hyperlipidemia, unspecified; I10 Essential (primary) hypertension; E66.9 Obesity, unspecified; Z68.41 Body mass index [BMI] 40.0-44.9, adult; Z79.4 Long term (current) use of insulin; Z79.82 Long term (current) use of aspirin; Z79.899 Other long term (current) drug therapy; Z88.5 Allergy status to narcotic agent; Z91.041 Radiographic dye allergy status; Z86.718 Personal history of other venous thrombosis and embolism; Z95.5 Presence of coronary angioplasty implant and graft; Z95.0 Presence of cardiac pacemaker
CPT/HCPCS: 99291; 96374; 96361 ×4; 31500; 36415; 36600; 93005; 80053; 82805; 83735; 84484; 85025; 85610; 85730; 82272; 87070; 87205; 71045; J2060; J0171; 94002